=== PATIENT | female | born 1965 | race Caucasian/White ===

== ENCOUNTER → 2017-08-15 08:33 | Outpatient (CLI) | payer OTHER, BC, SELFPAY ==
[2017-08-15 09:01] LABS: Basophils % 0.4 % (0.1-2.0); Eosinophils # 0.2 K/mm3 (0.0-0.4); Eosinophils % 1.9 % (0.1-12.0); Hemoglobin 14.6 g/dL (12.2-16.2); Lymphocytes % 22.2 K/mm3 (10-50); Mean Corpuscular HGB Conc 33.9 g/dL (31.8-35.4); Mean Corpuscular Hemoglobin 29.5 pg (27.0-31.2); Mean Corpuscular Volume 86.9 fl (81-99); Mean Platelet Volume 7.7 fl (7.4-10.4); Monocytes # 0.6 K/mm3 (0.1-1.0); Monocytes % 6.4 % (1.7-9.3); Neutrophils # 6.1 K/mm3 (1.8-7.8); Neutrophils % 69.1 % (37.0-80.0); Platelet Count 263 K/mm3 (142-424); Red Blood Count 4.94 M/mm3 (4.20-5.40); Red Cell Distribution Width 13.7 % (11.5-17.5); White Blood Count 8.8 K/mm3 (4.8-10.8)
[2017-08-15 09:28] LABS: Alanine Aminotransferase 30 U/L (12-78); Albumin/Globulin Ratio 1.3 (1.1-1.8); Alkaline Phosphatase 125 U/L (46-116); Anion Gap 12.6 mEq/L (5-15); Aspartate Amino Transferase 21 U/L (15-37); Bilirubin,Total 0.6 mg/dL (0.2-1.0); Blood Urea Nitrogen 12 mg/dL (7-18); Calcium 9.1 mg/dL (8.5-10.1); Carbon Dioxide 28 mmol/L (21.0-32.0); Chloride 106 mmol/L (98-107); Chol/HDL Ratio 2.9 (1-3.5); Cholesterol 149 mg/dL (140-200); Creatinine,Serum 0.79 mg/dL (0.55-1.02); Estimated Glomerular Filt Rate 77 ml/min (>60); GFR (African American) 93 ML/MIN (>60); Globulin 3.2 gm/dl (1.3-3.2); Glucose 123 mg/dL (74-106); HDL Cholesterol 51 mg/dL (29-89); LDL Cholesterol 86 mg/dL (0-130); Potassium 3.6 mmoL/L (3.5-5.1); Sodium 143 mmol/L (136-145); Total Protein,Serum 7.2 gm/dL (6.4-8.2); Triglycerides 62 mg/dL (30-200); VLDL Cholesterol 12 mg/dL (0-40)
[2017-08-15 09:57] LABS: Erythrocyte Sedimentation Rate 13 mm/hr (0-20)
== END ==
PROVIDERS: Visit Provider Internal Medicine Adolescent Medicine
DX: Z00.00 Encounter for general adult medical examination without abnormal findings (principal); M35.00 Sjogren syndrome, unspecified; E55.9 Vitamin D deficiency, unspecified
CPT/HCPCS: 36415; 80053; 80061; 82652; 85025; 85651

== ENCOUNTER → 2018-01-25 12:47 | Outpatient (POV) | payer OTHER, BC, SELFPAY | PROVIDERS: Family Provider Internal Medicine Adolescent Medicine; PCP Internal Medicine Adolescent Medicine; Visit Provider Nurse Practitioner Acute Care | DX: Z00.00 Encounter for general adult medical examination without abnormal findings (principal) ==

== ENCOUNTER → 2018-05-14 07:07 | Outpatient (CLI) | payer BC, SELFPAY ==
[2018-05-14 09:20] LABS: Hemoglobin A1C 6.9 % (0.0-7.0)
[2018-05-14 09:40] LABS: Alanine Aminotransferase 42 U/L (12-78); Albumin Level 3.6 gm/dL (3.4-5.0); Albumin/Globulin Ratio 1.2 (1.1-1.8); Alkaline Phosphatase 102 U/L (46-116); Anion Gap 12.9 mEq/L (5-15); Aspartate Amino Transferase 22 U/L (15-37); Bilirubin,Total 0.5 mg/dL (0.2-1.0); Blood Urea Nitrogen 14 mg/dL (7-18); C-Reactive Protein 1.2 mg/L (0.0-0.9); Calcium 9.1 mg/dL (8.5-10.1); Carbon Dioxide 28 mmol/L (21.0-32.0); Chloride 105 mmol/L (98-107); Chol/HDL Ratio 2.9 (1-3.5); Cholesterol 126 mg/dL (140-200); Creatinine,Serum 0.85 mg/dL (0.55-1.02); Estimated Glomerular Filt Rate 71 ml/min (>60); GFR (African American) 85 ML/MIN (>60); Globulin 3.1 gm/dl (1.3-3.2); Glucose 174 mg/dL (74-106); HDL Cholesterol 44 mg/dL (29-89); LDL Cholesterol 70 mg/dL (0-130); Potassium 3.9 mmoL/L (3.5-5.1); Sodium 142 mmol/L (136-145); Total Protein,Serum 6.7 gm/dL (6.4-8.2); Triglycerides 62 mg/dL (30-200); VLDL Cholesterol 12 mg/dL (0-40)
[2018-05-14 09:59] LABS: Basophils % 0.5 % (0.1-2.0); Eosinophils # 0.2 K/mm3 (0.0-0.4); Eosinophils % 2.9 % (0.1-12.0); Hematocrit 38.6 % (37.0-47.0); Hemoglobin 12.7 g/dL (12.2-16.2); Lymphocytes # 1.4 K/mm3 (0.7-4.5); Mean Corpuscular HGB Conc 32.9 g/dL (31.8-35.4); Mean Corpuscular Hemoglobin 27.9 pg (27.0-31.2); Mean Corpuscular Volume 84.8 fl (81-99); Mean Platelet Volume 7.5 fl (7.4-10.4); Monocytes # 0.4 K/mm3 (0.1-1.0); Neutrophils # 4.5 K/mm3 (1.8-7.8); Neutrophils % 68.6 % (37.0-80.0); Platelet Count 184 K/mm3 (142-424); Red Blood Count 4.55 M/mm3 (4.20-5.40); Red Cell Distribution Width 15.1 % (11.5-17.5); White Blood Count 6.5 K/mm3 (4.8-10.8)
[2018-05-14 11:26] LABS: Erythrocyte Sedimentation Rate 13 mm/hr (0-30)
== END ==
PROVIDERS: Visit Provider Internal Medicine Adolescent Medicine
DX: M35.00 Sjogren syndrome, unspecified (principal); M15.0 Primary generalized (osteo)arthritis; R73.9 Hyperglycemia, unspecified
CPT/HCPCS: 36415; 80053; 80061; 83036; 85025; 85651; 86140

== ENCOUNTER → 2019-11-01 08:52 | Outpatient (CLI) | payer BC, SELFPAY ==
[2019-11-02 13:16] LABS: Covid-19 Nasal PCR Sendout Lex Not Detected
== END ==
PROVIDERS: Visit Provider Internal Medicine Adolescent Medicine
DX: Z20.828 Contact with and (suspected) exposure to other viral communicable diseases (principal)
CPT/HCPCS: U0004

== ENCOUNTER 2020-12-09 13:19 | Emergency (ER) | payer BC, SELFPAY ==
[2020-12-09 14:20] VITALS: BP 145/75; PULSE 89; RESP 16; TEMP 36.7; O2SAT 99; BMI 33.3
--- NOTE | 2020-12-09 14:55 | HMH.EDUTC ---
[facility] Disposition Clinical Impression: Upper respiratory infection, viral, COVID-19 virus test result unknown Disposition: Home, Self-Care Condition on Discharge: Good Instructions: DI for Viral Upper Respiratory Infection -- Adult, DI for COVID-19 (Suspected or Confirmed ), Preventing the Spread of Coronavirus Discharge Instructions Additional Instructions: covid swab was sent to lab, call later today for results. self isolate until test results are known to be negative No sign of a bacterial infection. Likely viral. Viruses can take 7-14 days to run their course. Nasal saline and bulb syringe or nose Anaid to remove nasal drainage to help with nasal congestion. Hard to eat, drink, sleep with nasal congestion so important to keep this cleaned out. Monitor temp. Tylenol or Motrin as needed for pain or fever Encourage fluids, water, Gatorade, Powerade, Pedialyte if infant/toddler/child Warm salt water gargles Warm fluids Sore throat lozenges Sleep elevated Humidifier/vaporizer Follow-up immediately for new or worsening symptoms or no noticeable improvement over the next 48-72 hours. Referrals: Tomy Reid MD [Primary Care Provider] - Forms: Work/School Release Time of Disposition: 14:59 Medical Decision Making - Jc Inquiry Pt receiving controlled substance: No Vital Signs: 12/09/20 14:20 Temperature 98.1 F Temperature Source Oral Pulse Rate [Right Brachial] 89 Respiratory Rate 16 Blood Pressure [Right Arm] 145/75 H Blood Pressure Mean [Right Arm] 98 Blood Pressure Source [Right Arm] Automatic Cuff Blood Pressure Position [Right Arm] Sitting 02 Sat by Pulse Oximetry 99 Oxygen Delivery Method Room Air Orders (Tests/Meds): ORDERS Category Date Time Status Covid-19 Nasal PCR ([facility]) Routine Lab 12/09/20 14:37 Ordered [facility] HPI - General Chief complaint: Urgent Treatment Center Stated complaint: covid test Time Seen by Provider: 12/09/20 14:55 Mode of Arrival: Ambulatory Source of Information: Patient Limitations: No Limitations Description of Symptoms (Recalled from Triage Doc. by RN): COVID TEST. C/O COUGH, HEADACHE, DIARRHEA, NAUSEA, AND CHEST CONGESTION X 2 DAYS HEENT Symptoms (Recalled from RN notes): Yes Resp Symptoms (Recalled from RN notes): Yes Skin Symptoms (Recalled from RN notes): No MS Symptoms (Recalled from RN notes): No Functional Status (Recalled from RN notes): WNL - History of Present Illness Provider Complaint: 55 yr old female presents for covid test. pt c/o cough,headache,diarrhea,fever,nausea and chest congestion for 2 days. - Related Data Home Medications Medication Instructions Recorded Confirmed escitalopram oxalate 10 mg tablet 10 mg PO DAILY tab 06/25/17 10/31/18 glimepiride 2 mg tablet 2 mg PO DAILY tab 08/25/19 pioglitazone 30 mg tablet 30 mg PO DAILY tab 08/25/19 Allergies Allergy/AdvReac Type Severity Reaction Status Date / Time Sulfa (Sulfonamide Allergy Unknown I-HIVES Verified 10/08/20 16:00 Antibiotics) [SULFA (SULFONAMIDE ANTIBIOTICS)] - Worker's Comp Is this a Worker's Comp case?: No [facility] History - Hepatitis A Screen Drug use history?: No High risk sexual behaviors?: No History of sexually transmitted infection?: No Currently employed?: No Childcare worker?: No Do you have indoor plumbing?: Yes Do you have electricity?: Yes Attestation statement:: This patient has been screened for Hepatitis A risk factors. I have reviewed the patient's past medical history: Yes Medical History: Reports:: Diabetes Mellitus Type 2, Hypertension Other Medical History: Reports: Arthritis, Other Comment: Endometriosis. Breast mass. Diabetes Type 2. Arthritis. Hypertension. IBS Laterality Cases: Bilateral: Tonsillectomy Other Surgeries: Yes: Appendectomy, Other Amputation: No Fractures: No Comment: as a child- Tonsillectomy Fascial sling procedure for stress incon. as a child- open Appy. 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
[2020-12-09 14:58] VITALS: BP 145/75; PULSE 89; RESP 16; TEMP 36.7; O2SAT 99
== END 2020-12-09 15:06 | disposition home or self-care (01) ==
PROVIDERS: Emergency Provider Nurse Practitioner Family; PCP Internal Medicine Adolescent Medicine
DX: J06.9 Acute upper respiratory infection, unspecified (principal)
CPT/HCPCS: 99202; G0463; U0003

== ENCOUNTER → 2021-07-24 16:17 | Outpatient (CLI) | payer BC, SELFPAY | PROVIDERS: PCP Internal Medicine Adolescent Medicine; Visit Provider Surgery | DX: Z11.52 Encounter for screening for COVID-19 (principal) | CPT/HCPCS: C9803; U0003; U0005 ==

== ENCOUNTER 2021-07-26 06:25 | Day surgery (SDC) | payer BC, SELFPAY ==
[2021-07-24 12:52] VITALS: BMI 27.4
[2021-07-26 07:03] VITALS: BP 126/79; PULSE 76; RESP 18; TEMP 37; O2SAT 94
[2021-07-26 07:24] VITALS: O2SAT 97
--- NOTE | 2021-07-26 07:37 | HMH.ANESCL ---
[facility] Anesthesia Checklist - Patient Identification Patient Identification: Arm Band - Structural Data Admitted From: Home Planned Operative Procedure/s: colonoscopy Consent for Planned Operative Procedure(s) Verified: Yes Verified Documents: Surgical Consent, History and Physical - NPO Status Verified Time NPO: 00:00 - Additional verifications Anesthesia Reactions: No - Airway Assessment C-Spine Mobility Assessed: Yes (mp2) TMJ Mobility Assessed: Yes Dentition: Good Dentition - Neurological Assessment Level of Consciousness: Awake, Alert - Anesthesia Plan Anesthesia Risk discussed: Yes Anesthesia Plan: Verified ASA Class: II Anesthesia Type: MAC [facility] History I have reviewed the patient's past medical history: Yes Medical History: Reports:: Diabetes Mellitus Type 2, Hypertension Denies:: Cancer, Diabetes Mellitus Type 1, Internal Pacemaker, MRSA, Seizures *Have you ever received a pneumonia vaccine?: No *Have you received a flu vaccine this season?: No Other Medical History: Reports: Arthritis, Other Anesthesia experience/problems:: nac Laterality Cases: Bilateral: Tonsillectomy Other Surgeries: Yes: Appendectomy, Other. No: Pacemaker Amputation: No Fractures: No - *Social History Last grade of school completed: Some college Smoking Status: Never smoker Alcohol Intake: never Alcohol Intake Frequency:: other Substance Use Type: denies use *Occupational Status:: employed Housing: house Household Members: family *Travel in the last 8 weeks: None Family Hx:: Coronary Artery Disease, Diabetes, Hypertension
[2021-07-26 07:55] VITALS: BP 138/77; PULSE 65; RESP 16; TEMP 36.2; O2SAT 99
--- NOTE | 2021-07-26 07:55 | P.PCN_ITS ---
- Procedure: Date: 07/26/21 Patient Date of :: 1965 Procedure Performed:: Total colonoscopy to terminal ileum with biopsies Indications:: Patient is a 56-year-old female. She presents for screening colonoscopy. She had previously undergone hysterectomy. She has had some symptoms attributed to IBS characterized as left lower quadrant left pelvic pain. She also has alteration between diarrhea and constipation. She has had previous colonoscopy in [address] Patel which revealed diverticulosis, mild. Dr. Godfrey Jiménez did colonoscopy on 05/15/2008 which revealed sigmoid diverticulosis. Dr. Carpenter did colonoscopy on 06/21/2015 which was normal with no diverticulosis and 5 to 6- year follow-up was recommended. Performing Provider:: Aureliano Hagen MD Referring Provider:: Tomy Reid MD Sedation:: MAC sedation Procedure:: Patient was taken to endoscopy procedure room. She was positioned in lateral decubitus position. Adequate intravenous sedation was achieved with anesthesia titration of propofol. Variable stiffness Olympus colonoscope was inserted via the anus. Is advanced to the cecum with some minor difficulty as she had some tortuosity and redundancy of the rectosigmoid. Colonic preparation was good. Ileocecal valve and appendiceal orifice were clearly identified. There was some minor subtle irregularity at the appendiceal orifice which was biopsied. Colonoscope was advanced into the terminal ileum which appeared grossly normal. Cold biopsy was obtained. Colonoscope was slowly withdrawn through the colon with careful surveillance. She had some mild sigmoid diverticulosis. Several random left colon biopsies were obtained as there was some possible subtle colitis. Retroflexion within the rectum revealed nonbleeding mildly prolapsing hemorrhoids. Colonoscope was withdrawn. Findings:: Mild sigmoid diverticulosis Redundancy of sigmoid colon and tortuosity of rectosigmoid Potential very mild colitis of the distal sigmoid, biopsied Prolapsing nonbleeding internal hemorrhoids Recommendations:: No polyps noted. Repeat colonoscopy pending symptoms, likely 10 years for screening purposes. Some of her symptoms of irritable bowel syndrome may be secondary to her colon pathology post hysterectomy with redundancy and tortuosity of the sigmoid and rectosigmoid colon. Complications:: None immediately apparent Estimated blood obtained (mL): 3
[2021-07-26 08:05] VITALS: BP 141/77; PULSE 71; RESP 18; O2SAT 99
[2021-07-26 08:15] VITALS: BP 135/73; PULSE 84; RESP 18; O2SAT 99
[2021-07-26 08:28] VITALS: BP 161/97; PULSE 63; RESP 18; TEMP 36.2; O2SAT 99
[2022-01-16 10:59] LABS: POC Glucose,Bedside 94 (70-110)
== END 2021-07-26 08:28 | disposition home or self-care (01) ==
LOC: OUTP 06:26
PROVIDERS: PCP Internal Medicine Adolescent Medicine; Visit Provider Surgery
PROC: 0DJD8ZZ Inspection of Lower Intestinal Tract, Via Natural or Artificial Opening Endoscopic (ICD-10-PCS; CPT 45380; principal; 2021-07-26 07:30)
DX: Z12.11 Encounter for screening for malignant neoplasm of colon (principal); K57.30 Diverticulosis of large intestine without perforation or abscess without bleeding; K56.2 Volvulus; K52.9 Noninfective gastroenteritis and colitis, unspecified; K64.9 Unspecified hemorrhoids; E11.9 Type 2 diabetes mellitus without complications; I10 Essential (primary) hypertension; M19.90 Unspecified osteoarthritis, unspecified site; Z88.2 Allergy status to sulfonamides; Z79.899 Other long term (current) drug therapy
CPT/HCPCS: 45380; 82962

== ENCOUNTER → 2022-09-26 10:05 | Outpatient (CLI) | payer BC, OTHER, SELFPAY ==
[2022-09-26 10:46] LABS: Basophils % 0.5 % (0.1-2.0); Eosinophils # 0.1 K/mm3 (0.0-0.4); Eosinophils % 1.8 % (0.1-12.0); Hematocrit 37.9 % (37.0-47.0); Hemoglobin 12.6 g/dL (12.2-16.2); Lymphocytes # 1.5 K/mm3 (0.7-4.5); Lymphocytes % 23.5 % (10-50); Mean Corpuscular HGB Conc 33.3 g/dL (31.8-35.4); Mean Corpuscular Hemoglobin 29.8 pg (27.0-31.2); Mean Corpuscular Volume 89.4 fl (81-99); Mean Platelet Volume 8.2 fl (7.4-10.4); Monocytes # 0.4 K/mm3 (0.1-1.0); Monocytes % 5.6 % (1.7-9.3); Neutrophils # 4.4 K/mm3 (1.8-7.8); Neutrophils % 68.7 % (37.0-80.0); Platelet Count 209 K/mm3 (142-424); Red Blood Count 4.24 M/mm3 (4.20-5.40); Red Cell Distribution Width 14.2 % (11.5-17.5); White Blood Count 6.3 K/mm3 (4.8-10.8)
[2022-09-26 11:03] LABS: Hemoglobin A1C 4.4 % (4.0-6.0)
[2022-09-26 11:06] LABS: Chloride 102 mmol/L (98-107); Sodium 139 mmol/L (136-145)
[2022-09-26 11:09] LABS: Alanine Aminotransferase 19 U/L (12-78); Albumin Level 4.2 g/dl (3.5-5.0); Albumin/Globulin Ratio 1.6 (1.1-1.8); Alkaline Phosphatase 71 U/L (38-126); Aspartate Amino Transferase 29 U/L (14-36); Bilirubin,Total 0.6 mg/dl (0.2-1.3); Blood Urea Nitrogen 7 mg/dl (7-17); Carbon Dioxide 29 mmol/L (22.0-30.0); Cholesterol 140 mg/dl (140-200); Estimated Glomerular Filt Rate 58 ml/min (>60); GFR (African American) 70 ML/MIN (>60); Globulin 2.6 g/dL (1.3-3.2); Total Protein,Serum 6.8 g/dl (6.3-8.2); Triglycerides 109 mg/dl (30-150); VLDL Cholesterol 22 mg/dL (0-40)
[2022-09-26 11:10] LABS: Calcium 9.7 mg/dl (8.4-10.2); Chol/HDL Ratio 2.6 (1-3.5); Glucose 83 mg/dl (74-100); HDL Cholesterol 53 mg/dl (40-60)
[2022-09-26 11:21] LABS: Direct LDL Cholesterol 55.08 mg/dL (100-129)
[2022-09-26 11:27] LABS: 25-OH Vitamin D, Total 38.7 ng/mL (30-100)
[2022-09-26 11:41] LABS: Thyroid Stimulating Hormone 1.04 uIU/mL (0.465-4.68)
[2022-09-26 11:45] LABS: Ferritin 73.1 ng/ml (11.1-264)
[2022-09-26 12:42] LABS: Vitamin B12 821 pg/mL (239-931)
== END ==
PROVIDERS: PCP Internal Medicine Adolescent Medicine; Visit Provider Nurse Practitioner Family
DX: E11.9 Type 2 diabetes mellitus without complications (principal); I10 Essential (primary) hypertension; R53.81 Other malaise; Z86.39 Personal history of other endocrine, nutritional and metabolic disease; Z79.84 Long term (current) use of oral hypoglycemic drugs
CPT/HCPCS: 36415; 80053; 80061; 82306; 82607; 82728; 83036; 84443; 85025

== ENCOUNTER 2024-01-29 15:29 | Outpatient (CLI) | payer BC, OTHER, SELFPAY ==
--- NOTE | 2024-01-29 15:48 | XR_ITS ---
FINAL REPORT CLINICAL HISTORY: BREATHLESSNESS CHEST PAIN cough, shortness of breath x 3 months COMPARISON: None FINDINGS: Two views of the chest were obtained. The heart size and pulmonary vascularity are within normal limits. The mediastinum is normal. No acute pulmonary abnormality is identified. There is no pneumothorax. The bony thorax is intact. IMPRESSION: No active cardiopulmonary disease. Reviewed, Interpreted and Dictated by Aureliano De La Cruz III, MD Transcribed by Lydia Ansari Authenticated and . [facility]
[2024-01-29 16:34] LABS: Basophils # 0.1 K/mm3 (0-0.2); Basophils % 0.7 % (0.1-2.0); Eosinophils # 0.2 K/mm3 (0.0-0.4); Eosinophils % 2.7 % (0.1-12.0); Hematocrit 37.5 % (37.0-47.0); Lymphocytes # 2.2 K/mm3 (0.7-4.5); Lymphocytes % 26.6 % (10-50); Mean Corpuscular HGB Conc 34.6 g/dL (31.8-35.4); Mean Corpuscular Hemoglobin 30.4 pg (27.0-31.2); Mean Corpuscular Volume 87.8 fl (81-99); Mean Platelet Volume 8.1 fl (7.4-10.4); Monocytes # 0.6 K/mm3 (0.1-1.0); Monocytes % 6.7 % (1.7-9.3); Neutrophils # 5.2 K/mm3 (1.8-7.8); Neutrophils % 63.2 % (37.0-80.0); Platelet Count 214 K/mm3 (142-424); Red Blood Count 4.28 M/mm3 (4.20-5.40); Red Cell Distribution Width 13.8 % (11.5-17.5); White Blood Count 8.2 K/mm3 (4.8-10.8)
[2024-01-29 16:54] LABS: Albumin Level 4.3 g/dl (3.5-5.0); Chloride 103 mmol/L (98-107); Potassium 4.1 mmoL/L (3.5-5.1); Sodium 136 mmol/L (136-145)
[2024-01-29 16:57] LABS: Alanine Aminotransferase 10 U/L (12-78); Albumin/Globulin Ratio 1.8 (1.1-1.8); Alkaline Phosphatase 64 U/L (38-126); Anion Gap 12.1 mEq/L (5-15); Aspartate Amino Transferase 29 U/L (14-36); Bilirubin,Total 0.7 mg/dl (0.2-1.3); Blood Urea Nitrogen 10 mg/dl (7-17); Calcium 9.4 mg/dl (8.4-10.2); Carbon Dioxide 25 mmol/L (22.0-30.0); Estimated Glomerular Filt Rate 74 ml/min (>60); GFR (African American) 90 ML/MIN (>60); Globulin 2.4 g/dL (1.3-3.2); Glucose 84 mg/dl (74-100); Magnesium 1.9 mg/dl (1.6-2.3); Total Protein,Serum 6.7 g/dl (6.3-8.2)
[2024-01-29 16:58] LABS: Hemoglobin A1C 4.9 % (4.0-6.0)
[2024-01-29 17:28] LABS: Thyroid Stimulating Hormone 1.01 uIU/mL (0.465-4.68)
[2024-01-29 17:39] LABS: 25-OH Vitamin D, Total 84.5 ng/mL (30-100)
[2024-01-29 18:23] LABS: Vitamin B12 > 1000 pg/mL (239-931)
== END 2024-01-29 23:59 | disposition home or self-care (01) ==
LOC: RAD 15:31
PROVIDERS: PCP Internal Medicine Adolescent Medicine; Visit Provider Internal Medicine Adolescent Medicine
DX: R06.81 Apnea, not elsewhere classified (principal); R07.9 Chest pain, unspecified; K21.9 Gastro-esophageal reflux disease without esophagitis; E55.9 Vitamin D deficiency, unspecified; E11.9 Type 2 diabetes mellitus without complications
CPT/HCPCS: 36415; 71046; 80050; 80053; 82306; 82607; 83036; 83735; 84443; 85025

== ENCOUNTER 2024-02-11 09:40 | Outpatient (CLI) | payer BC, OTHER, SELFPAY ==
[2024-02-11 10:15] VITALS: PULSE 68; PULSE 74
[2024-02-11] MEDS: ALBUTEROL 0.083% 2.5 MG/3 ML NEB IH (10:15)
== END 2024-02-11 23:59 | disposition home or self-care (01) ==
LOC: RT 09:41
PROVIDERS: PCP Internal Medicine Adolescent Medicine; Visit Provider Internal Medicine Adolescent Medicine
DX: R07.9 Chest pain, unspecified (principal); R06.81 Apnea, not elsewhere classified
CPT/HCPCS: 94060; 94640; 94726; 94729; J7613

== ENCOUNTER 2024-11-08 08:14 | Outpatient (CLI) | payer BC, OTHER, SELFPAY ==
--- OUTSIDE RECORDS SUMMARY | 2024-07-23 17:30 | XMS_ITS ---
Author Organization [facility] PE D KAYLIE Address [address] [place] [address] Care Team Providers Care Non Acoustic Operator Name Role Phone FranklinTomy Primary Care Provider [...] ankles Drug Allergy Active REASON FOR VISIT [facility] To [facility] Conversion Encounter Medications Medication SIG (Take, Route, Frequency, Duration) Notes Start Date End Date Status Nystatin 125384 UNIT/ML 5 mL orally swish 4 times [...] review and pick correct strength-formulati on from [employer] options. If intended option is not shown, discontinue and re-order from Quick Search* 06/29/2024 Active BUDESONIDE-FORMOTER OL FUMARATE DIHYDRATE 160 MCG-4.5 MCG/INH 2 INH INHALED 2 TIMES A DAY; Duration: 30 DAYS Please dispense spacer for MDI also... thank you! *Please review for potential replacement for e-prescription and drug interaction check* 02/22/2024 Active Encounters Encounter Location Date Provider Diagnosis [facility] [place] [address] [facility] [address] [place] [address] 07/23/2024 Provider Migration Mild intermittent asthma without [...] Sig Start Date Stop Date Notes Nystatin 029795 UNIT/ML 5 mL orally swis h 4 times a day; Duration: 14 days 07/01/2024 Fluconazole 150 MG 1 tab(s) orally once; Duration: 10 days 06/29/2024 Fluticasone Propionate 50 MCG/ACT 2 spray(s) in each nostril once a day; Duration: 90 days 06/29/2024 Breyna 160 MCG-4.5 MCG/INH 2 INH INHALED 2 TIMES A DAY; Duration: 90 DAYS 06/29/2024 *Please review and pick correct strength-formulation from [employer] options. If intended option is not shown, discontinue and re-order from Quick Search* Progress Notes * Zaynab HOLLOWAYDOB: [birth year] (59 yo F)Acc No.[id number]:07/23/2024 Patient: Zaynab HENDRIX Provider: Joe Bethea :1965 A ge:59 Y S ex:Female Date:07/23/2024 Address:[address] [place], [place] [address], [id number] Pcp:Tomy Reid Subjective: * Chief Complaints: * [...] 1. 4. O thers Start Nystatin Suspension, 204857 UNIT/ML, 5 mL, orally, swish 4 times a day, 14 days, 280, Refills 0. * * Electronic signature of Prov ider Migration on 11/08/2024 at 08:20 AM EDT Sign off status: Pending * Provider: Joe crespo Migration Date: 0 07/23/2024 Generated for Nelida quinonez/Jaki/Denitting on: 0 11/08/2024 08:20 AM EDT
--- OUTSIDE RECORDS SUMMARY | 2024-11-07 10:00 | XMS_ITS ---
Author Organization [facility] PE D KAYLIE Address [address] [place] [address] Care Team Providers Care Plaster Die Maker Name Role Phone Tomy Reid Primary Care Provider [phone] Allergies Allergen (clinical drug ingredient) Drug/Non Drug Allergy documented on EMR Reaction Allergy Type Onset Date Status SULFA (uncoded) rash Allergy Acti ve bisoprolol Bisoprolol Fumarate swelling in ankles Drug Allergy Active bisoprolol / hydrochlorothiazide Bisoprolol-hydro CHLOROthiazide swelling in ankles Drug Allergy Active amlodipine amLODIPine swelling in ankles Drug Allergy Active REASON FOR VISIT Follow up on asthma. Medications Medication SIG (Take, Route, Frequency, Duration) Notes Start Date End Date Status Ozempic (0.25 or 0.5 MG/DOSE) 2 MG/3ML INJECT 0.5 MG SUBCUTANEOUSLY ONCE A WEEK; Duration: 84 Active Olmesartan Medoxomil 40 MG 1 tab(s) orally once a day; Duration: 90 days Active Escitalopram Oxalate 20 MG TAKE 1 TABLET DAILY; Duration: 90 Active Fluticasone Propionate 50 MCG/ACT 2 spray(s) in each nostril once a day; Duration: 90 days 06/29/2024 Active Fluconazole 150 MG 1 tab(s) orally once ; Duration: 10 days 06/29/2024 Active Metoprolol Tartrate 25 MG 1 tab(s) orally 2 times a day Active Famotidine 40 MG 1 tab(s) orally once a day (at bedtime); Duration: 90 days Active Nystatin 055385 UNIT/ML 5 mL orally swish 4 times a day; Duration: 14 days 07/01/2024 Active Breyna 160 MCG-4.5 MCG/INH 2 INH INHALED 2 TIMES A DAY; Duration: 90 DAYS *Please review and pick correct strength-formulati on from [employer] options. If intended option is not shown, discontinue and re-order from Quick Search* 06/29/2024 Active BUDESONIDE-FORMOTER OL FUMARATE DIHYDRATE 160 MCG-4.5 MCG/INH 2 INH INHALED 2 TIMES A DAY; Duration: 30 DAYS Please dispense spacer for MDI also... thank you! *Please review for potential replacement for e-prescription and drug interaction check* 02/22/2024 Active Vital Signs Temperature 97.7 degrees Fahrenheit 11/08/19 25 Blood pressure systolic 114 mm Hg 11/08/19 25 Blood pressure diastolic 84 mm Hg 025 Heart Rate 72 /min 11/07/2024 Height 5 ft 6 in in 11/07/2024 Weight 150 lbs 11/07/2024 BMI 24.21 kg/m2 11/07/2024 Encounters Encounter Location Date Provider Diagnosis [facility] [address] [place] [address] 11/07/2024 Tomy Franklin Hypertension, essent ial I10 ; Type 2 diabetes mellitus without complication, without long-term current use of insulin E11.9 ; History of vitamin D deficiency Z86.39 ; Mild intermittent asthma without complication J45.20 ; Acute nonintractable headache, unspecified headache type R51.9 and Diplopia H53.2 Assessments Encounter Date Diagnosis (ICD Code) Assessment Notes Treatment Notes Treatment Clinical Notes Section Notes 11/07/2024 Hypertension, essential (ICD-10 - I10) Her hypertension is well managed by Olmesartan Medoxomil and metoprolol. In office her BP was 114/84. 11/07/2024 Type 2 diabetes mellitus without complication, without long-term current use of insulin (ICD-10 - E11.9) Her T2D is well managed with Ozempic. No acute concerns at this time. 11/07/2024 History of vitamin D deficiency (ICD-10 - Z86.39) No concerns at this time. 11/07/2024 Mild intermittent asthma without complication (ICD-10 - J45.20) Her asthma is well managed with Breyna. No concerns at this time. 11/07/2024 Acute nonintractable headache, unspecified headache type (ICD-10 - R51.9) We discussed getting an MRI of her head to assess the cause of the headaches. We also discussed getting an ESR and cortisol levels on her tomorrow morning. 11/07/2024 Diplopia (ICD-10 - H53.2) We discussed getting an MRI of her head to assess the cause of the diplopia. Plan Of Treatment Treatment Notes Assessment Notes Hypertension, essential Her hypertension is well managed by Olmesartan Medoxomil and metoprolol. In office her BP was 114/84. Type 2 diabetes mellitus wit hout complication, without long-term current use of insulin Her T2D is well managed with Ozempic. No acute concerns at this time. History of vitamin D deficiency No justine rns at this time. Mild intermittent asthma wit hout complication Her asthma is well managed with Breyna. No concerns at this time. Acute nonintractable headach e, unspecified headache type We discussed getting an MRI of her head to assess the cause of the headaches. We also discussed getting an ESR and cortisol levels on her tomorrow morning. Diplopia We discussed getting an MRI of her head to assess the cause of the diplopia. Pending Test Test Name Order Date MRI : Head, Without Contrast 11/07/2024 THYROID PANEL WITH TSH (7444) 11/07/2024 LIPID PANEL, STANDARD (7600) 11/07/2024 COMPREHENSIVE METABOLIC PANEL (31266) CBC (INCLUDES DIFF/PLT) (6399) HEMOGLOBIN A1c (496) 11/07/2024 VITAMIN B12/FOLATE, SERUM PANEL (7065) 0 11/07/2024 CORTISOL, A.M. (4212) 11/07/2024 VITAMIN D,25-OH,TOTAL,IA (96538) 025 Next Appt Details Follow Up: prn, Reason: Provider Name:Tomy Reid, 11/08/2024 08:30:00 AM, [address], [place], [address], Progress Notes * Zaynab HOLLOWAY: 7 (59 yo F)Acc No.[id number]:11/07/2024 Progress Notes Patient: Zaynab HENDRIX Provider: Radha Reid MD :1965 A ge:59 Y S ex:Female Date:11/07/2024 Address:[address] [place] [address], [place], [id number] Subjective: * Chief Complaints: * 1 . Follow up on asthma.. * HPI: g en: Mrs. Holloway presents for a f/u: On June she was started on Breyna to help with her asthma. She reports that she has noticed improvement in her breathing and is becoming less short of breath. Her main concern is these h/a she has been experiencing for the past month. She notes the pain begins o n the top of her left head and radiates down to her left face near her left maxillary sinus. She also notes having blurry vision in the right eye. She has these headaches once to twice a week. Excedrin, lavendar/peppermint oils, and cold compresses do help with the migraines. She is also having concerns about her sleep. For the past several months, she has had trouble falling asleep. CBD and melatonin does help, but she does not want to take this every night if she does not have to. She denies daytime sleepiness or taking naps. * Medical History: H ormone replacement therapy, Hypertension, Anxiety, Mild osteopenia on DEXA 08/06, Fibromyalgia, Sjogrens syndrome, Diabetes, Colonoscopy. * Surgical History: t onsillectomy , hysterectomy 2001, cholecystectomy 1999, appendectomy , nasal septoplasty 2013, fascial sling for urethra 2017. * Hospitalization/Major Diagno stic Procedure: D enies Past Hospitalization. * Family History: F ather: alive, diabetes, throat cancer, diagnosed with Diabetes. M other: , coronary artery disease, hypertension, diagnosed with Heart Disease. P aternal Grand Father: . P aternal Grand Mother: , [place]. M aternal Grand Father: . M aternal Grand Mother: . P aternal uncle: alive, COPD. P aternal aunt: . M aternal uncle: alive. M aternal aunt: alive, 1 maternal aunt [place], 1 maternal aunt breast cancer,aneurysm. S iblings: alive, diabetes, type II sister. Renee benson: alive. 1 sister(s) - healthy. 2 daughter(s) - healthy. . * Social History: S moking: no A re you a:: nonsmoker. R ecreational drug use: no. Exercise: no. Home smoke detector use: yes. Caffeine: yes, frequency: 2 cups coffee in am. Living Will: Yes. Alcohol: no. Sexually active: yes. Travel outside [place]: no. Occupation: retired. * Medications: T aking Metoprolol Tartrate 25 MG Tablet 1 tab(s) orally 2 times a day , Taking Famotidine 40 MG Tablet 1 tab(s) orally once a day (at bedtime) , Taking BUDESONIDE-FORMOTEROL FUMARATE DIHYDRATE 160 MCG-4.5 MCG/INH AEROSOL 2 INH INHALED 2 TIMES A DAY , Notes to Pharmacist: Please dispense spacer for MDI also... thank you! *Please review for potential replacement for e-prescription and drug interaction check*, Taking Nystatin 363384 UNIT/ML Suspension 5 mL orally swish 4 times a day , Taking Breyna 160 MCG-4.5 MCG/INH AEROSOL 2 INH INHALED 2 TIMES A DAY , Notes to Pharmacist: *Please review and pick correct strength-formulation from [employer] options. If intended option is not shown, discontinue and re-order from Quick Search*, Taking Fluticasone Propionate 50 MCG/ACT Suspension 2 spray(s) in each nostril once a day , Taking Fluconazole 150 MG Tablet 1 tab(s) orally once , Taking Olmesartan Medoxomil 40 MG Tablet 1 tab(s) orally once a day , Taking Escitalopram Oxalate 20 MG Tablet TAKE 1 TABLET DAILY , Taking Ozempic (0.25 or 0.5 MG/DOSE) 2 MG/3ML Solution Pen-injector INJECT 0.5 MG SUBCUTANEOUSLY ONCE A WEEK , Medication List reviewed and reconciled with the patient * Allergies: S ULFA: rash, amLODIPine: swelling in ankles, Bisoprolol-hydroCHLOROthiazide: swelling in ankles, Bisoprolol Fumarate: swelling in ankles. Objective: * Vitals: N urse: be, Pain: 3, Temp: 97.7, RR: 16, HR: 72, BP: 114/84, Ht: 5 ft 6 in, Wt: 150, BMI:24.21. * Examination: G eneral Examination: General P leasant and Cooperative, NAD on RA,. Chest: n ormal shape and expansion. Heart: R egular Rate and Rhythm, no murmur, rubs or gallops. Lungs: L CTAB, No wheezes, crackles or rhonchi, Good air movement,. Peripheral pulses: n ormal (2+) bilaterally. ? Assessment: * Assessment: 1. H ypertension, essential - I10 (Primary) 2 . T ype 2 diabetes mellitus without complication, without long-term current use of insulin - E11.9 3 . H istory of vitamin D deficiency - Z86.39 4 . M ild intermittent asthma without complication - J45.20 5 . A cute nonintractable headache, unspecified headache type - R51.9 6 . D iplopia - H53.2 Plan: * Treatment: 2. T ype 2 diabetes mellitus without complication, without long-term current use of insulin L AB: THYROID PANEL WITH TSH (7444) L AB: LIPID PANEL, STANDARD (7600) L AB: COMPREHENSIVE METABOLIC PANEL (86412) L AB: CBC (INCLUDES DIFF/PLT) (6399) L AB: HEMOGLOBIN A1c (496) L AB: VITAMIN B12/FOLATE, SERUM PANEL (7065) L AB: CORTISOL, A.M. (4212) L AB: VITAMIN D,25-OH,TOTAL,IA (32216) Notes: Her T2D is well managed with Ozempic. No acute concerns at this time. 3. H istory of vitamin D deficiency L AB: THYROID PANEL WITH TSH (7444) L AB: LIPID PANEL, STANDARD (7600) L AB: COMPREHENSIVE METABOLIC PANEL (30691) L AB: CBC (INCLUDES DIFF/PLT) (6399) L AB: HEMOGLOBIN A1c (496) L AB: VITAMIN B12/FOLATE, SERUM PANEL (7065) L AB: CORTISOL, A.M. (4212) L AB: VITAMIN D,25-OH,TOTAL,IA (07301) Notes: No concerns at this time. 4. M ild intermittent asthma without complication Notes: Her asthma is well managed with Breyna. No concerns at this time. 5. A cute nonintractable headache, unspecified headache type L AB: THYROID PANEL WITH TSH (7444) L AB: LIPID PANEL, STANDARD (7600) L AB: COMPREHENSIVE METABOLIC PANEL (71689) L AB: CBC (INCLUDES DIFF/PLT) (6399) L AB: HEMOGLOBIN A1c (496) L AB: VITAMIN B12/FOLATE, SERUM PANEL (7065) L AB: CORTISOL, A.M. (4212) L AB: VITAMIN D,25-OH,TOTAL,IA (97017) I maging: MRI : Head, Without Contrast * Notes: We discussed getting an MRI of her head to assess the cause of the headaches. We also discussed getting an ESR and cortisol levels on her tomorrow morning.??6.?Diplopia?LAB: THYROID PANEL WITH TSH (7444) ?LAB: LIPID PANEL, STANDARD (7600) ?LAB: COMPREHENSIVE METABOLIC PANEL (72237) ?LAB: CBC (INCLUDES DIFF/PLT) (6399) ?LAB: HEMOGLOBIN A1c (496) ?LAB: VITAMIN B12/FOLATE, SERUM PANEL (7065) ?LAB: CORTISOL, A.M. (4212) ?LAB: VITAMIN D,25-OH,TOTAL,IA (61288) ?Imaging: MRI : Head, Without Contrast* Pattie Dash 11/07/2024 02: 57:57 PM EDT > Precert not required for CPT 20335 * Notes: We discussed getting an MRI of her head to assess the cause of the diplopia.?? * Follow Up: p rn * * Sign off status: Completed true * Provider: Radha Reid MD Date: 11/07/2024 Generated for Nelida quinonez/Jaki/eTmaxiitting on: 11/08/2024 08:19 AM EDT History and Physical Notes * HPI (History of Present Illness) Category Sub-Category Detail Notes Category Not es gen Mrs. Holloway presents for a f/u: On June she was started on Breyna to help with her asthma. She reports that she has noticed improvement in her breathing and is becoming less short of breath. Her main concern is these h/a she has been experiencing for the past month. She notes the pain begins on the top of her left head and radiates down to her left face near her left maxillary sinus. She also notes having blurry vision in the right eye. She has these headaches once to twice a week. Excedrin, lavendar/peppermint oils, and cold compresses do help with the migraines. She is also having concerns about her sleep. For the past several months, she has had trouble falling asleep. CBD and melatonin does help, but she does not want to take this every night if she does not have to. She denies daytime sleepiness or taking naps. Examination Category Sub-Category Detail Notes Category Not es General Examination Heart: Regular Rate and Rhythm, no murmur, rubs or gallops Lungs: LCTAB, No wheezes, c rackles or rhonchi, Good air movement, Peripheral pulses: normal (2+) bilatera lly Chest: normal shape and exp ansion General Pleasant and Coopera tive, NAD on RA,
--- OUTSIDE RECORDS SUMMARY | 2024-11-08 08:20 | XMS_ITS | Encounter Summary ---
Author Organization [facility] Address [address] [place] [address] Care Team Providers Care Fish Stringer Assembler Name Role Phone Tomy Reid MD Primary Care Provider [phone] Encounter Details Date Type Department Care Team ([facility] st Contact Info) Description 09/06/2020 Abstract [facility] [address], [address] [place] [address] Sonja Shields PA [address] [place] [address] Social History Tobacco Use Types Packs/Day Years Used Date Smoking Tobacco: Never Smokeless Tobacco: Never Comments Unknown Sex and Gender Information Value Date Recorded Sex Assigned at Female 04/16/2021 10:02 AM EST Legal Sex Female 8:32 PM EDT Gender Identity Female 04/16/2021 10:02 AM EST Sexual Orientation Straight 04/16/2021 10 :02 AM EST documented as of this encounter Plan of Treatment Not on file documented as of this encounter Visit Diagnoses Not on filedocumented in this encounter Care Teams Fish Stringer Assembler Relationship Specialty Start Date End Date Tomy Reid MD [address] [place] [address] PCP - General 08/31/20 documented as of this encounter
--- OUTSIDE RECORDS SUMMARY | 2024-11-08 08:20 | XMS_ITS | Clinical Summary ---
Author Organization [facility] Address [address] [place] [address] Care Team Providers Care Architectural Model Maker Name Role Phone Lloyd Hill MD Primary Care Provider + Allergies Active Allergy Reactions Criticality Noted Date Comments Sulfa Antibiotics Hives,Rash Medium 01/01/2007 Other reaction(s): rash Other reaction(s): rash Tetanus Toxoids Rash Low 10/08/2020 Medications glimepiride (AMARYL) 2 MG tablet Daily. Active pantoprazole (PROTONIX) 40 mg in 100mL NS IVPB Daily. 11/07/2021 Active aspirin (aspirin) 81 MG EC tablet Adult Aspirin Regimen 81 mg tablet,delay ed release Take 1 tablet every day by oral route. Active escitalopram (Lexapro) 10 MG tablet Lexapro 10 mg tablet Take 1 tablet every day by oral route. Active Social History Tobacco Use Types Packs/Day Years Used Date Smoking Tobacco: Never Assessed Abuse Screen Answer Date Recorded Unsafe at Home or Work/School Not on file Feels Threatened by Someone? Not on file 12/2022 Does Anyone Keep You from Co ntacting Others or Doint Things Outside the Home? Not on file 01/26/2023 Physical Sign of Abuse Present Not on file 1 Housing Stability Answer Date Recorded Current Living Arrangements Not on file 12/2022 Potentially Unsafe Housing Conditions Not on jessica e 01/26/2023 Family and Community Support Answer Juni e Recorded Help with Day-to-Day Activities Not on file 01/26/2023 Lonely or Isolated Not on file 01/26/2023 Employment Answer Date Recorded Do you want help finding or keeping work or a juvenal b? Not on file 01/26/2023 Disabilities Answer Date Recorded Concentrating, Remembering, or Making Decisions Difficulty Not on file 01/26/2023 Doing Errands Independently Difficulty Not on fi le 01/26/2023 Education Answer Date Recorded Help with school or training? Not on file Preferred Language Not on file 01/26/2023 Comments Unknown Sex and Gender Information Value Date Recorded Sex Assigned at Not on file Legal Sex Female 11:36 AM EDT Gender Identity Not on file Sexual Orientation Not on file Last Filed Vital Signs Vital Sign Reading Time Taken Comments Blood Pressure 149/82 11/13/2021 9:11 AM EDT Pulse 74 11/13/2021 9:11 AM EDT Temperature 36.2 C (97.1 F) 11/13/2021 7:54 AM EDT Respiratory Rate 16 11/13/2021 9:11 AM EDT Oxygen Saturation 98% 11/13/2021 8:53 AM EDT Inhaled Oxygen Concentration - - Weight 86.2 kg (190 lb) 11/13/2021 7:54 AM EDT Height 165.1 cm (5' 5 ) 11/13/2021 7:54 AM EDT Body Mass Index 31.62 11/13/2021 7:54 AM EDT Plan of Treatment Health Maintenance Due Date Last Done Comments Annual Gynecologic Pelvic an d Breast Exam 1965 MAMMOGRAM 2007 COLOGUARD 2012 COLON CANCER SCREENING 5 YEA R SIGMOIDOSCOPY 2012 COLONOSCOPY 2012 COL[address]ECTAL CANCER SCREENING 2012 CT COLONOGRAPHY 2012 FECAL OCCULT BLOOD TEST 2012 03/16/2007 FIT Testing (1 year) 2012 Pneumococcal Vaccine 50+ (1 of 1 - PCV) 2017 ZOSTER VACCINE (1 of 2) 2017 ANNUAL PHYSICAL 11/12/2021 HEPATITIS C SCREENING 11/12/2021 COVID-19 Vaccine ( season) 12/20/202305/2020 INFLUENZA VACCINE 01/18/2025 02/01/2019, , 01/06/2017 Insurance [facility] BLUE CROSS BLUE SHIELD PPO [place] BLUE [employer]OSS BLUE [employer]IELD PPO Care Teams Architectural Model Maker Relationship Specialty Start Date End Date Lloyd Hill MD [address] [place] [id number] PCP - General Internal Medicine 10/23/21
--- OUTSIDE RECORDS SUMMARY | 2024-11-08 08:21 | XMS_ITS | Clinical Summary ---
Author Organization [facility] Address [address] [place] [address] Care Team Providers Care Care Nurse Rn Name Role Phone Tomy Reid MD Primary Care Provider [phone] Allergies Active Allergy Reactions Criticality Noted Date Comments Amlodipine Other - please document in the comment field Low 10/08/2020 Other reaction(s): swelling in ankles Other reaction(s): swelling in ankles Bisoprolol Other - please document in the comment field Low 10/08/2020 Other reaction(s): swelling in ankles Other reaction(s): swelling in ankles Bisoprolol-Hydrochlorothiazi de Other - please document in the comment field Low 04/16/2021 Other reaction(s): swelling in ankles Chlorthalidone Other - please document in the comment field Low 10/08/2020 Dulaglutide Other - please document in the comment field Low 10/08/2020 Hydralazine Other - please document in the comment field Low 10/08/2020 Hydrochlorothiazide Other - please document in the comment field Low 10/08/2020 Influenza Virus Vaccine Rash Medium 02/03/2019 Metformin Hcl Other - please document in the comment field Low 01/09/2016 Sulfa Drugs Rash Low 01/01/2007 Other reaction(s): rash Other reaction(s): rash Sulfacetamide Hives Medium 07/22/2012 Tetanus Toxoids Rash Low 10/08/2020 Medications dexlansoprazole (Dexilant) [address] capsule Take 1 capsule by mouth 1 (one) time each day before breakfast. Active escitalopram (Lexapro) 10 MG tablet Take 1 tablet by mouth 1 (one) time each day. 1 Active pioglitazone (Actos) 15 MG tablet Take 1 tablet by mouth 1 (one) time each day. 1 Active glimepiride (Amaryl) 2 MG tablet Take 2 mg by mouth 1 (one) time each day. 0 Active olmesartan (BENIcar) 20 MG tablet Take 1 tablet (20 mg total) by mouth 1 (one) time each day. 90 tablet 3 1 Active semaglutide (Rybelsus) 3 MG tablet 1 (one) time each day. Active ketoconazole (NIZOral) 2 % cream 2 Active ketoconazole (NIZOral) 2 % cream ketoconazole 2 % topical cream APPLY TO THE AFFECTED AREA(S) BY TOPICAL ROUTE ONCE DAILY Active cholecalciferol (D 1000) 25 MCG (1000 UT) capsule 1 (one) time each day at the same time. Active calcium carbonate-vitam in D (Calcium 600+D) 600-200 MG-UNIT tablet every 8 (eight) hours. Active Active Problems Problem Noted Date Diagnosed Date Breast cyst 08/05/2021 Dribbling of urine 07/22/2021 PONV (postoperative nausea and vomiting) 022 Generalized anxiety disorder 04/23/2021 Irritable bowel syndrome with constipation 04/23 Irritable bowel syndrome with diarrhea 2 Migraine without aura, not refractory 04/23/2021 Pain in limb 04/23/2021 Sensorineural hearing loss 04/23/2021 Primary osteoarthritis 04/23/2021 Sjogren's syndrome 04/23/2021 Vitamin D deficiency 04/23/2021 Disorder of breast implant 09/04/2020 Hypertension 08/23/2020 Edema of lower extremity 10/03/2019 Gastroesophageal reflux disease 03/10/2019 Urinary incontinence 03/10/2019 Essential hypertension 03/10/2019 Presbyopia 02/01/2019 Type 2 diabetes mellitus without complication 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 03/11/2016 Disorder associated with type 2 diabetes mellitu s 01/09/2016 Obesity 01/09/2016 Bilateral tinnitus 12/04/2015 Ingrowing nail 11/29/2015 Hyperglycemia 11/05/2015 Prediabetes 11/05/2015 Acquired hallux rigidus 08/02/2015 Pain in right foot 08/02/2015 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 Chronic tension-type headache 02/26/2015 Immunizations Immunization Administration Dates Next Due Mumps 11/24/2005 Family History Medical History Relation Name Comments Diabetes Father Heart attack Mother Hypertension Mother abdominal aortic aneurysm (AAA) Mother Relation Name Status Comments Father Mother Social History Tobacco Use Types Packs/Day Years Used Date Smoking Tobacco: Never Smokeless Tobacco: Never Alcohol Use Standard Drinks/Week Comments No 0 (1 standard drink = 0.6 oz pur e alcohol) Comments No Sex and Gender Information Value Date Recorded Sex Assigned at Female 04/16/2021 10:02 AM EST Legal Sex Female 8:32 PM EDT Gender Identity Female 04/16/2021 10:02 AM EST Sexual Orientation Straight 04/16/2021 10 :02 AM EST Last Filed Vital Signs Vital Sign Reading Time Taken Comments Blood Pressure 149/80 08/05/2021 3:41 PM EDT Pulse 61 08/05/2021 3:41 PM EDT Temperature 36.5 C (97.7 F) 08/05/2021 3:41 PM EDT Respiratory Rate 15 04/26/2021 5:15 PM EST Oxygen Saturation 99% 07/22/2021 12:25 PM EDT Inhaled Oxygen Concentration - - Weight 83.1 kg (183 lb 4.8 oz) 08/05/2021 3:41 P M EDT Height 165.1 cm (5' 5 ) 08/05/2021 3:41 PM EDT Body Mass Index 30.5 08/05/2021 3:41 PM EDT Plan of Treatment Health Maintenance Due Date Last Done Comments [facility]-Depression Screening 1965 [facility]-Infant/Child/Adol SDOH Screenings 1965 [facility]- SDOH Screenings 1985 [facility]-Adult SDOH Screenings 1985 [facility]-Hepatitis B Vaccines (1 of 3 - 19+ 3-dose series) 1986 [facility]-Pap Smear 1988 [facility]-Cervical Cancer Screening 1997 [facility]-HPV/Cotest 1997 CT Colonography 2012 Colonoscopy 2012 FIT-DNA 2012 FIT 2012 FOBT 2012 Sigmoidoscopy 2012 [facility]-Colorectal Cancer Screening 2012 [facility]-Pneumococcal Vaccine: 50+ Years (1 of 1 - PCV) 2017 [facility]-Zoster Vaccines (1 of 2) 2017 [facility]-DTaP,Tdap,and Td Vaccines (1 - Tdap) 03/11/2019 03/10/2019 [id number] Vaccine (2 - season) 2023 12/20/2020 [facility]-Influenza Vaccine (#1) 12/19/202402/01, 01/11/2018, 01/06/2017, Additional history exists [facility]-Hepatitis A Vaccines Aged Out 01/18/2019, 12/20 No longer eligible based on patient's age to complete this topic HPV Vaccines Aged Out No longer eligi ble based on patient's age to complete this topic [facility]-HIB Vaccines Aged Out No longer e ligible based on patient's age to complete this topic [facility]-IPV Vaccines Aged Out No longer e ligible based on patient's age to complete this topic [facility]-Rotavirus Vaccines Aged Out No lo nger eligible based on patient's age to complete this topic Insurance JONATHAN JONATHAN Care Teams Care Nurse Rn Relationship Specialty Start Date End Date Tomy Reid MD [address] [place] [address] PCP - General 08/31/20
--- OUTSIDE RECORDS SUMMARY | 2024-11-08 08:21 | XMS_ITS | Patient Health Record ---
Author Organization [facility] Address [address] [place] [address] Care Team Providers Care Treating And Pumping Supervisor Name Role Phone AnishTomy bone Primary Care Provider Della Fregoso Unavailable [phone] Migration, Provider Unavailable Unavailable Allergies Allergen (clinical drug ingredient) Drug/Non Drug Allergy documented on EMR Reaction Allergy Type Onset Date Status SULFA (uncoded) rash Allergy Acti ve bisoprolol Bisoprolol Fumarate swelling in ankles Drug Allergy Active bisoprolol / hydrochlorothiazide Bisoprolol-hydro CHLOROthiazide swelling in ankles Drug Allergy Active amlodipine amLODIPine swelling in ankles Drug Allergy Active Results Component Value Reference Range Notes H-VITB12 Reviewed date:01/30/2024 08:54:45 AM Interpretation: Performing Lab: Notes/Report: VITB12 > 1000 239-931 pg/mL H-TVITD Reviewed date:01/30/2024 08:54:45 AM Interpretation: Performing Lab: Notes/Report: TVITD 84.5 30-100 ng/mL Deficient <20 ng/mL Insufficient 20-30 ng/mL Sufficient 30-100 ng/mL Potential Toxicity >100 ng/mL M-Thyroid Stimulating Hormon e Reviewed date:01/30/2024 08:54:46 AM Interpretation: Performing Lab: Notes/Report: TSH 1.01 0.465-4.68 uIU/mL M-Magnesium Reviewed date:01/30/2024 08:54:46 AM Interpretation: Performing Lab: Notes/Report: MG 1.9 1.6-2.3 mg/dl M-Hemoglobin A1C Reviewed date:01/30/2024 08:54:46 AM Interpretation: Performing Lab: Notes/Report: HGBA1C 4.9 4.0-6.0 % < 6% Non-Diabetic Level < 7% Controlled Diabetic Level > 8% Poorly Controlled Diabetic Level M-Comprehensive Metabolic Pa kindra Reviewed date:01/30/2024 08:54:45 AM Interpretation: Performing Lab: Notes/Report: NA 136 136-145 mmol/L K 4.1 3.5-5.1 mmoL/L CL 103 98-107 mmol/L CO2 25 22.0-30.0 mmol/L GAP 12.1 5-15 mEq/L BUN 10 7-17 mg/dl CREATT 0.80 0.52-1.04 mg/dl GFRAA 90 >60 ML/MIN EGFR 74 >60 ml/min GLU 84 74-100 mg/dl CA 9.4 8.4-10.2 mg/dl BILIT 0.7 0.2-1.3 mg/dl AST 29 14-36 U/L ALT 10 12-78 U/L TP 6.7 6.3-8.2 g/dl ALB 4.3 3.5-5.0 g/dl GLOB 2.4 1.3-3.2 g/dL AGRATIO 1.8 1.1-1.8 ALP 64 38-126 U/L M-Complete Blood Count Auto Diff Reviewed date:01/30/2024 08:54:45 AM Interpretation: Performing Lab: Notes/Report: WBC 8.2 4.8-10.8 K/mm3 RBC 4.28 4.20-5.40 M/mm3 HGB 13.0 12.2-16.2 g/dL HCT 37.5 37.0-47.0 % MCV 87.8 81-99 fl MCH 30.4 27.0-31.2 pg MCHC 34.6 31.8-35.4 g/dL RDW 13.8 11.5-17.5 % PLT 214 142-424 K/mm3 MPV 8.1 7.4-10.4 fl NE% 63.2 37.0-80.0 % LY% 26.6 10-50 % MO% 6.7 1.7-9.3 % EO% 2.7 0.1-12.0 % BA% 0.7 0.1-2.0 % NE# 5.2 1.8-7.8 K/mm3 LY# 2.2 0.7-4.5 K/mm3 MO# 0.6 0.1-1.0 K/mm3 EO# 0.2 0.0-0.4 K/mm3 BA# 0.1 0-0.2 K/mm3 X ray : Chest Reviewed date:01/30/2024 11:00:33 AM Interpretation: Performing Lab: Notes/Report: Medications Medication SIG (Take, Route, Frequency, Duration) Notes Start Date End Date Status Metoprolol Tartrate 25 MG 1 tab(s) orally 2 times a day Active Famotidine 40 MG 1 tab(s) orally once a day (at bedtime); Duration: 90 days Active Ozempic (0.25 or 0.5 MG/DOSE) 2 MG/3ML [...] once ; Duration: 10 days 06/29/2024 Active Nystatin 642595 UNIT/ML 5 mL orally swish 4 times a day; Duration: 14 days 07/01/2024 Active Breyna 160 MCG-4.5 MCG/INH 2 INH INHALED 2 TIMES A DAY; Duration: 90 DAYS *Please review and pick correct strength-formulati on from [employer] options. If intended option is not shown, discontinue and re-order from Quick Search* 06/29/2024 Active BUDESONIDE-FORMOTER OL FUMARATE DIHYDRATE 160 MCG-4.5 MCG/INH 2 INH INHALED 2 TIMES A DAY; Duration: 30 DAYS Please dispense spacer for MDI also... thank you! *Please review for potential replacement for e-prescription and drug interaction check* 02/22/2024 Active Immunizations Vaccine Route Administration Date Status Comme nts Hepatitis B (#2) Unknown 01/13/2006 Administered Hepatitis B (#3) Unknown 05/22/2006 Administered MMR-ll Unknown 01/08/2006 Administered PPD Unknown 11/27/2006 Administered Recombivax (Hepatitis B Pediatric) Unknown 11/21/2005 A dministered Problems Problem Type SNOMED Code ICD Code Onset Dates Problem Status W/U Status Risk Notes Problem Information temporarily unavailable Generalized anxiety disorder (F41.1) Active confirmed Problem Information temporarily unavailable Irritable bowel syndrome with diarrhea (K58.0) Active confirmed Problem Information temporarily unavailable Depression with anxiety (F41.8) Active confirmed Problem Information temporarily unavailable Vitamin D deficiency (E55.9) Active confirmed Problem Information temporarily unavailable GERD without esophagitis (K21.9) Active confirmed Problem Information temporarily unavailable Hypertension, essential (I10) Active confirmed Problem Information temporarily unavailable Irritable bowel syndrome with constipation (K58.9) Active confirmed Problem Information temporarily unavailable Foot pain, right (M79.671) Active confirmed Problem Information temporarily unavailable Mild intermittent asthma without complication (J45.20) Active confirmed Problem Information temporarily unavailable Primary osteoarthritis involving multiple joints (M15.0) Active confirmed Problem Information temporarily unavailable Migraine without aura and without status migrainosus, not intractable (G43.009) Active confirmed Problem Information temporarily unavailable History of vitamin D deficiency (Z86.39) Active confirmed Problem Information temporarily unavailable Type 2 diabetes mellitus without complication, without long-term current use of insulin (E11.9) Active confirmed Problem Information temporarily unavailable Sjogren's syndrome (M35.00) Active confirmed Problem Information temporarily unavailable Unilateral sensorineural hearing loss (H90.5) Active confirmed Problem Information temporarily unavailable Urinary incontinence, post-void dribbling (N39.43) Active confirmed Vital Signs Heart Rate 72 /min 11/07/2024 Temperature 97.7 degrees Fahrenheit 11/07/2024 Oximetry 99 01/29/2024 Blood pressure diastolic 84 mm Hg 11/07/2024 Height 5 ft 6 in in 11/07/2024 Blood pressure systolic 114 mm Hg 11/07/2024 Weight 150 lbs 11/07/2024 BMI 24.21 kg/m2 11/07/2024 Encounters Encounter Location Date Provider Diagnosis [facility] [address] [place] [address] [place] [address] 07/23/2024 Provider Migration Mild intermittent asthma without complication J45.20 ; Recurrent acute serous otitis media of right ear H65.04 and Yeast vaginitis B37.31 [facility] [address] [facility] [address] [place], [place] [address] 01/29/2024 Tomy Besson Breathlessness R06.8 1 ; Chest pain, unspecified type R07.9 ; GERD without esophagitis K21.9 ; Vitamin D deficiency E55.9 ; Type 2 diabetes mellitus without complication, without long-term current use of insulin E11.9 and Routine medical exam Z00.00 [facility] [address] [facility] [address] [place] [address] 02/22/2024 Tomy Besson Mild intermittent asthma without complication J45.20 [facility] [address] [facility] [address] [place], [place] [address] 06/29/2024 Tomy Besson Mild intermittent asthma without complication J45.20 ; Upper respiratory virus J06.9 ; Recurrent acute serous otitis media of right ear H65.04 and Yeast vaginitis B37.31 [facility] [address] [facility] [address] [place], [place] [address] 11/07/2024 Tomy Besson Hypertension, essential I10 ; Type 2 diabetes mellitus without complication, without long-term current use of insulin E11.9 ; History of vitamin D deficiency Z86.39 ; Mild intermittent asthma without complication J45.20 ; Acute nonintractable headache, unspecified headache type R51.9 and Diplopia H53.2 [facility] [address] [address] 02/23/2024 Tomy Besson Mild intermittent asthma without complication J45.20 [facility] [address] [address] 04/26/2024 Tomy Besson [facility] [address] [place] [address] 05/16/2024 Tomy Besson Mild intermittent asthma without complication J45.20 [facility] [address] [place], [place] [address] 07/01/2024 Della Fregoso [facility] [address] [address] 07/05/2024 Tomy Reid Mild intermittent asthma without complication J45.20 ; Recurrent acute serous otitis media of right ear H65.04 and Yeast vaginitis B37.31 [facility] [address] [place] [address] 07/30/2024 Tomy Reid [facility] [place] [address] [facility] [address] [place], [place] [address] 08/15/2024 Tomy Reid [facility] [address] [place] [address] 11/08/2024 Tomy Reid Assessments Encounter Date Diagnosis (ICD Code) Assessment Notes Treatment Notes Treatment Clinical Notes Section Notes 01/29/2024 Chest pain, unspecified type (ICD-10 - R07.9) EKG completely normal. Given normal stress test 2 years ago will workup issues with breathing symptoms first 01/29/2024 Breathlessness (ICD-10 - R06.81) Unusual symptom, could be that she is noticing periodic or sigh breaths, but will workup with chest x-ray and PFTs. 02/22/2024 Mild intermittent asthma without complication (ICD-10 - J45.20) Went over PFTs in detail. Patient very pleased that we might have an answer to her dyspnea. Start ICS/LABA combination. Explained in detail and demonstrated use of MDI and spacer 02/23/2024 Mild intermittent asthma without complication (ICD-10 - J45.20) 05/16/2024 Mild intermittent asthma without complication (ICD-10 - J45.20) 06/29/2024 Mild intermittent asthma without complication (ICD-10 - J45.20) Symptoms well controlled. Prefers Breyna inhaler to substitute. Will send to [facility] pharmacy to make it easier to obtain since her current pharmacy is out of stock. 06/29/2024 Upper respiratory virus (ICD-10 - J06.9) 1 wk hx of mild URI symptoms. Likely RSV based on sick contacts. Continue symptomatic care with mucinex, tylenol prn, fluids. RTC if worsening after 10 days. Will send RX for flonase. 07/05/2024 Mild intermittent asthma without complication (ICD-10 - J45.20) 07/23/2024 Mild intermittent asthma without complication (ICD-10 - J45.20) 11/07/2024 Hypertension, essential (ICD-10 - I10) Her hypertension is well managed by Olmesartan Medoxomil and metoprolol. In office her BP was 114/84. 11/07/2024 Type 2 diabetes mellitus without complication, without long-term current use of insulin (ICD-10 - E11.9) Her T2D is well managed with Ozempic. No acute concerns at this time. 01/29/2024 GERD without esophagitis (ICD-10 - K21.9) Stable on famotidine, will refill 11/07/2024 History of vitamin D deficiency (ICD-10 - Z86.39) No concerns at this time. 07/23/2024 Recurrent acute serous otitis media of right ear (ICD-10 - H65.04) 07/05/2024 Recurrent acute serous otitis media of right ear (ICD-10 - H65.04) 06/29/2024 Recurrent acute serous otitis media of right ear (ICD-10 - H65.04) 01/29/2024 Vitamin D deficiency (ICD-10 - E55.9) Check labs as noted. I will review personally 07/05/2024 Yeast vaginitis (ICD-10 - B37.31) 06/29/2024 Yeast vaginitis (ICD-10 - B37.31) 07/23/2024 Yeast vaginitis (ICD-10 - B37.31) 11/07/2024 Mild intermittent asthma without complication (ICD-10 - J45.20) Her asthma is well managed with Breyna. No concerns at this time. 11/07/2024 Acute nonintractable headache, unspecified headache type (ICD-10 - R51.9) We discussed getting an MRI of her head to assess the cause of the headaches. We also discussed getting an ESR and cortisol levels on her tomorrow morning. 01/29/2024 Type 2 diabetes mellitus without complication, without long-term current use of insulin (ICD-10 - E11.9) Doing well on GLP agent. Check A1c today. I will review all labs personally 01/29/2024 Routine medical exam (ICD-10 - Z00.00) Up-to-date with colonoscopy, mammogram and X RAY TECHNICIAN screening. Up-to-date on vaccines. Lifelong non-smoker. Otherwise healthcare maintenance up-to-date, good health Its, normal BMI. Did encourage exercise 11/07/2024 Diplopia (ICD-10 - H53.2) We discussed getting an MRI of her head to assess the cause of the diplopia. Plan Of Treatment Pending Test Test Name Order Date IVP 09/15/2006 EKG : In House 12/26/2010 MRI : Head, Without Contrast 11/07/2024 H-VITAMIN B12 05/19/2016 H-CMP 05/19/2016 H-MAGNESIUM 05/19/2016 H-LIPID PANEL 05/19/2016 H-LIPID PANEL 03/09/2009 C-FREE T4 10/16/2010 C-URINE CULTURE 07/30/2011 H-CCCP 02/10/2008 N-CRP 04/30/2018 Comp. Metabolic Panel (14) 04/30/2018 CBC With Differential/Platelet 9 Sedimentation Rate-Westergren 04/30/2018 Lipid Panel 04/30/2018 Hemoglobin A1c 04/30/2018 Pulmonary Function Test- Complete 2023 M-Miscellaneous Test 10/31/2019 M-Comprehensive Metabolic Panel 03/11/20 M-Hemoglobin A1C 03/11/2021 M-Lipid Panel 03/11/2021 M-Thyroid Stimulating Hormone 03/11/2021 M-Vitamin B12 03/11/2021 M-Vitamin B12 01/29/2024 M-Vitamin B12 09/26/2022 M-Vitamin D 25 Hydroxy 09/26/2022 M-Vitamin D 25 Hydroxy 01/29/2024 M-Vitamin D 25 Hydroxy 03/11/2021 THYROID PANEL WITH TSH (7444) 11/07/2024 LIPID PANEL, STANDARD (7600) 11/07/2024 COMPREHENSIVE METABOLIC PANEL (87364) CBC (INCLUDES DIFF/PLT) (6399) HEMOGLOBIN A1c (496) 11/07/2024 VITAMIN B12/FOLATE, SERUM PANEL (7065) 0 11/07/2024 CORTISOL, A.M. (4212) 11/07/2024 VITAMIN D,25-OH,TOTAL,IA [phone] Insurance Providers Payer Name Payer Address Payer Phone Subscriber Number Group Number Insured Name Patient Relationship to Insured Coverage Start Date Coverage End Date [facility] [address] [place] [address] [id number] Zaynab Holloway Self - patient is the insured Medications Administered Medication Instructions Date of Administration Dosage Notes Ceftriaxone 500 11/16/2017 500 mg Triamcinolone Acetonide 40mg Injection 11/16/2017 1 mL Triamcinolone Acetonide 40mg Injection 09/24/2018 1 mL Kenalog 10/05/2015 1 mL Medical (General) History Medical History History ICD Code hormone replacement therapy hypertension anxiety Mild osteopenia on DEXA 08/06 Fibromyalgia Sjogrens syndrome Diabetes Colonoscopy Surgical History Surgery Date(Month/Year) tonsillectomy hysterectomy 2001 cholecystectomy 1999 appendectomy nasal septoplasty 2013 fascial sling for urethra 2018
[2024-11-08 08:49] LABS: Hematocrit 37.5 % (37.0-47.0); Hemoglobin 12.8 g/dL (12.2-16.2); Immature Granulocytes % 0.4 %; Mean Corpuscular HGB Conc 34.1 g/dL (31.8-35.4); Mean Corpuscular Hemoglobin 30.3 pg (27.0-31.2); Mean Corpuscular Volume 88.7 fl (81-99); Nucleated Red Blood Cells % 0 %; Platelet Count 224 K/mm3 (142-424); Red Blood Count 4.23 M/mm3 (4.20-5.40); Red Cell Distribution Width-SD 43.0 fL; White Blood Count 7.5 K/mm3 (4.8-10.8)
[2024-11-08 09:20] LABS: Alanine Aminotransferase 11 U/L (12-78); Albumin Level 4.3 g/dl (3.5-5.0); Albumin/Globulin Ratio 1.9 (1.1-1.8); Alkaline Phosphatase 73 U/L (38-126); Anion Gap 7.8 mEq/L (5-15); Aspartate Amino Transferase 22 U/L (14-36); Bilirubin,Total 0.8 mg/dl (0.2-1.3); Blood Urea Nitrogen 10 mg/dl (7-17); Calcium 10.9 mg/dl (8.4-10.2); Carbon Dioxide 32 mmol/L (22.0-30.0); Chloride 103 mmol/L (98-107); Cholesterol 132 mg/dl (140-200); Creatinine,Serum 0.90 mg/dl (0.52-1.04); Estimated Glomerular Filt Rate 65 ml/min (>60); GFR (African American) 78 ML/MIN (>60); Globulin 2.3 g/dL (1.3-3.2); Glucose 121 mg/dl (74-100); HDL Cholesterol 54 mg/dl (40-60); Potassium 3.8 mmoL/L (3.5-5.1); Sodium 139 mmol/L (136-145); Total Protein,Serum 6.6 g/dl (6.3-8.2); Triglycerides 68 mg/dl (30-150)
[2024-11-08 09:37] LABS: Hemoglobin A1C 4.9 % (4.0-6.0)
[2024-11-08 09:40] LABS: 25-OH Vitamin D, Total 72.4 ng/mL (30-100)
[2024-11-08 09:41] LABS: Free Thyroxine Index 2.8 ug/dL (5.93-13.13); T4 (Thyroxine) 8.6 ug/dl (5.53-11.0); Triiodothryronine (T3) Uptake 33 % (23.5-40.5)
[2024-11-08 09:54] LABS: Thyroid Stimulating Hormone 1.15 uIU/mL (0.465-4.68)
[2024-11-08 10:15] LABS: Vitamin B12 > 1000 pg/mL (239-931)
[2024-11-08 10:27] LABS: Folate 5.98 ng/mL
[2024-11-09 15:11] LABS: Cortisol,AM 12.4 ug/dL (6.2-19.4)
== END 2024-11-08 23:59 | disposition home or self-care (01) ==
LOC: LAB 08:15
PROVIDERS: PCP Internal Medicine Adolescent Medicine; Visit Provider Internal Medicine Adolescent Medicine
DX: H53.2 Diplopia (principal); E11.9 Type 2 diabetes mellitus without complications; Z86.39 Personal history of other endocrine, nutritional and metabolic disease; R51.9 Headache, unspecified
CPT/HCPCS: 36415; 80053; 80061; 82306; 82533; 82607; 82746; 83036; 84436; 84443; 84479; 85025

== ENCOUNTER 2024-11-09 14:05 | Outpatient (CLI) | payer BC, OTHER, SELFPAY ==
--- OUTSIDE RECORDS SUMMARY | 2024-07-23 17:30 | XMS_ITS ---
Author Organization [facility] PE D KAYLIE Address [address] [place] [address] Care Team Providers Care Corn Crop Supervisor Name Role Phone FranklinTomy Primary Care Provider [phone] Migration, Provider Unavailable Unavailable Allergies Allergen (clinical drug ingredient) Drug/Non Drug Allergy documented on EMR Reaction Allergy Type Onset Date Status SULFA (uncoded) rash Allergy Acti ve bisoprolol Bisoprolol Fumarate swelling in ankles Drug Allergy Active bisoprolol / hydrochlorothiazide Bisoprolol-hydro CHLOROthiazide swelling in ankles Drug Allergy Active amlodipine amLODIPine swelling in ankles Drug Allergy Active REASON FOR VISIT [facility] To [facility] Conversion Encounter Medications Medication SIG (Take, Route, Frequency, Duration) Notes Start Date End Date Status Nystatin 500916 UNIT/ML 5 mL orally swish 4 times [...] review and pick correct strength-formulati on from [employer] options. If intended option is not shown, discontinue and re-order from Quick Search* 06/29/2024 Active BUDESONIDE-FORMOTER OL FUMARATE DIHYDRATE 160 MCG-4.5 MCG/INH 2 INH INHALED 2 TIMES A DAY; Duration: 30 DAYS Please dispense spacer for MDI also... thank you! *Please review for potential replacement for e-prescription and drug interaction check* 02/22/2024 Active Encounters Encounter Location Date Provider Diagnosis [facility] [place] [address] [facility] [address] [place] [address] 07/23/2024 Provider Migration Mild intermittent asthma without [...] Sig Start Date Stop Date Notes Nystatin 098395 UNIT/ML 5 mL orally swis h 4 times a day; Duration: 14 days 07/01/2024 Fluconazole 150 MG 1 tab(s) orally once; Duration: 10 days 06/29/2024 Fluticasone Propionate 50 MCG/ACT 2 spray(s) in each nostril once a day; Duration: 90 days 06/29/2024 Breyna 160 MCG-4.5 MCG/INH 2 INH INHALED 2 TIMES A DAY; Duration: 90 DAYS 06/29/2024 *Please review and pick correct strength-formulation from [employer] options. If intended option is not shown, discontinue and re-order from Quick Search* Progress Notes * Zaynab HOLLOWAYDOB: 7 (59 yo F)Acc No.[id number]:07/23/2024 Patient: Zaynab HENDRIX Provider: Joe Bethea :1965 A ge:59 Y S ex:Female Date:07/23/2024 Address:[address] [place], [place] [address], [id number] Pcp:Tomy Reid Subjective: * Chief Complaints: * [...] 1. 4. O thers Start Nystatin Suspension, 716244 UNIT/ML, 5 mL, orally, swish 4 times a day, 14 days, 280, Refills 0. * * Electronic signature of Prov ider Migration on 11/09/2024 at 02:08 PM EDT Sign off status: Pending * Provider: Joe crespo Migration Date: 0 07/23/2024 Generated for Nelida quinonez/Jaki/Denitting on: 0 11/09/2024 02:08 PM EDT
--- OUTSIDE RECORDS SUMMARY | 2024-11-07 10:00 | XMS_ITS ---
Author Organization [facility] PE D K[facility] Address [address] [place] [address] Care Team Providers Care Gear Machine Operator Name Role Phone Tomy Reid Primary Care [...] (at bedtime); Duration: 90 days Active Nystatin 449594 UNIT/ML 5 mL orally swish 4 times a day; Duration: 14 days 07/01/2024 Active Breyna 160 MCG-4.5 MCG/INH 2 INH INHALED 2 TIMES A DAY; Duration: 90 DAYS *Please review and pick correct strength-formulati on from [employer] options. If intended option is not shown, [...] 11/07/2024 Encounters Encounter Location Date Provider Diagnosis [facility] [address] [place] [address] 11/07/2024 Tomy Franklin Hypertension, essent ial I10 [...] PANEL, STANDARD (7600) 11/07/2024 COMPREHENSIVE METABOLIC PANEL (54435) CBC (INCLUDES DIFF/PLT) (6399) HEMOGLOBIN A1c (496) 11/07/2024 VITAMIN B12/FOLATE, SERUM PANEL (7065) 0 11/07/2024 CORTISOL, A.M. (4212) 11/07/2024 VITAMIN D,25-OH,TOTAL,IA (44698) 025 Next Appt Details Follow Up: prn, Reason: Progress Notes * Zaynab HOLLOWAY JDOB: [birth year] (59 yo F)Acc No.[id number]:11/07/2024 Progress Notes Patient: Shruti HENDRIXsundar Ayo Provider: Radha Reid MD :1965 A ge:59 Y S ex:Female Date:11/07/2024 Address:[address] [place], [id number] Subjective: * Chief Complaints: * 1 . [...] Father: . P aternal Grand Mother: , [place]. M aternal Grand Father: . M aternal Grand Mother: . P aternal uncle: alive, COPD. P aternal aunt: . M aternal uncle: alive. M aternal aunt: alive, 1 maternal aunt [place], 1 maternal aunt breast cancer,aneurysm. S iblings: [...] e-prescription and drug interaction check*, Taking Nystatin 520706 UNIT/ML Suspension 5 mL orally swish 4 times a day , Taking Breyna 160 MCG-4.5 MCG/INH AEROSOL 2 INH INHALED 2 TIMES A DAY , Notes to Pharmacist: *Please review and pick correct strength-formulation from [employer] options. If intended option is not shown, [...] STANDARD (7600) L AB: COMPREHENSIVE METABOLIC PANEL (11842) L AB: CBC (INCLUDES DIFF/PLT) (6399) L AB: HEMOGLOBIN A1c (496) L AB: VITAMIN B12/FOLATE, SERUM PANEL (7065) L AB: CORTISOL, A.M. (4212) L AB: VITAMIN D,25-OH,TOTAL,IA (28712) Notes: Her T2D is well managed with Ozempic. No acute concerns at this time. 3. H istory of vitamin D deficiency L AB: THYROID PANEL WITH TSH (7444) L AB: LIPID PANEL, STANDARD (7600) L AB: COMPREHENSIVE METABOLIC PANEL (84723) L AB: CBC (INCLUDES DIFF/PLT) (6399) L AB: HEMOGLOBIN A1c (496) L AB: VITAMIN B12/FOLATE, SERUM PANEL (7065) L AB: CORTISOL, A.M. (4212) L AB: VITAMIN D,25-OH,TOTAL,IA (42661) Notes: No concerns at this time. 4. M ild intermittent asthma without complication Notes: Her asthma is well managed with Breyna. No concerns at this time. 5. A cute nonintractable headache, unspecified headache type L AB: THYROID PANEL WITH TSH (7444) L AB: LIPID PANEL, STANDARD (7600) L AB: COMPREHENSIVE METABOLIC PANEL (45953) L AB: CBC (INCLUDES DIFF/PLT) (6399) L AB: HEMOGLOBIN A1c (496) L AB: VITAMIN B12/FOLATE, SERUM PANEL (7065) L AB: CORTISOL, A.M. (4212) L AB: VITAMIN D,25-OH,TOTAL,IA (51710) I maging: MRI : Head, Without Contrast * Notes: We discussed getting an MRI of her head to assess the cause of the headaches. We also discussed getting an ESR and cortisol levels on her tomorrow morning.??6.?Diplopia?LAB: THYROID PANEL WITH TSH (7444) ?LAB: LIPID PANEL, STANDARD (7600) ?LAB: COMPREHENSIVE METABOLIC PANEL (97995) ?LAB: CBC (INCLUDES DIFF/PLT) (6399) ?LAB: HEMOGLOBIN A1c (496) ?LAB: VITAMIN B12/FOLATE, SERUM PANEL (7065) ?LAB: CORTISOL, A.M. (4212) ?LAB: VITAMIN D,25-OH,TOTAL,IA (49780) ?Imaging: MRI : Head, Without Contrast* Pattie Dash 11/07/2024 02: 57:57 PM EDT > Precert not required for CPT 56417 * Notes: We discussed getting an MRI of her head to assess the cause of the diplopia.?? * Follow Up: p rn * * Sign off status: Completed true * Provider: Radha Reid MD Date: 11/07/2024 Generated for Scoobyi ng/Fahermelindag/eTransmitting on: 11/09/2024 02:08 PM EDT History and Physical Notes * [...]
--- OUTSIDE RECORDS SUMMARY | 2024-11-08 04:30 | XMS_ITS ---
Author Organization [facility] Address [address] [place] [address] Care Team Providers Care Target Aircraft Technician Name Role Phone Tomy Reid Primary Care Provider [phone] REASON FOR VISIT Lab Encounters Encounter Location Date Provider Diagnosis [facility] [address] [place] [address] 11/08/2024 Tomy Reid Plan Of Treatment No Information Progress Notes * Zaynab HOLLOWAYDOB: [birth year] (59 yo F)Acc No.[id number]:11/08/2024 LABS Patient: Zaynab HENDRIX Provider: Radha Reid MD :1965 A ge:59 Y S ex:Female Date:11/08/2024 Address:[address], [id number] Subjective: * Chief Complaints: * 1 . Lab. * Medical History: Objective: * Vitals: Assessment: Plan: * Treatment: * * Electronic signature of Serge Reid MD FAAP on 11/09/2024 at 02:08 PM EDT Sign off status: Pending * Provider: Radha Reid MD Date: 11/08/2024 Generated for Printi ng/Faxing/eTransmitting on: 11/09/2024 02:08 PM EDT
--- OUTSIDE RECORDS SUMMARY | 2024-11-09 14:09 | XMS_ITS | Encounter Summary ---
Author Organization [facility] Address [address] [place] [address] Care Team Providers Care Scarf And Anneal Operator Name Role Phone Tomy Reid MD Primary Care Provider [phone] Encounter Details Date Type Department Care Team ([facility] st Contact Info) Description 09/06/2020 Abstract [facility] [address] [facility], [address] [place] [address] Sonja Shields PA [address] [place] [address] Social History Tobacco Use Types [...] on filedocumented in this encounter Care Teams Scarf And Anneal Operator Relationship Specialty Start Date End Date Tomy Reid MD [address] [place] [address] PCP - General 08/31/20 documented as of this encounter
--- OUTSIDE RECORDS SUMMARY | 2024-11-09 14:09 | XMS_ITS | Patient Health Record ---
Author Organization [facility] Address [address] [place] [address] Care Team Providers Care Automation And Controls Supervisor Name Role Phone Heidi Faulkner Unavailable [phone] Allergies Allergen (clinical drug ingredient) Drug/Non Drug Allergy documented on EMR Reaction Allergy Type Onset Date Status sulfamethoxazole / trimethoprim SULFAMETHOXAZOLE-T RIMETHOPRIM Unspecified Drug Allergy 09/24/2009 Active Reason For Referral No Information Social History Social History Sexual History: Social Info Question Answer Notes Sexual History Had sex in the past 12 months (vaginal, oral, or anal)? Yes Drugs/Alcohol: Social Info Question Answer Notes Drugs Have you used drugs other than those for medical reasons in the past 12 months? No Alcohol Screen Did you have a drink containing alcohol in the past year? Yes Points 0 Interpretation Negative Tobacco Use: Social Info Question Answer Notes Tobacco Use/Smoking Are you a former smoker Tobacco use other than smoking: Are you an other tobac co user? No Problems Problem Type SNOMED Code ICD Code Onset Dates Problem Status W/U Status Risk Notes Problem Candidal vulvovaginitis (55611999) Anogenital candidiasis in female (B37.3) 010 Active confirmed CANDIDIASIS OF VULVA AND VAGINA Problem Candidal vulvovaginitis (03785456) Anogenital candidiasis in female (B37.3) 010 Active confirmed CANDIDIASIS OF VULVA AND VAGINA Problem Adult health examination (164752381) Adult general medical exam (Z00.00) 010 Active confirmed ANNUAL EXAM Plan Of Treatment No Information Medical (General) History Medical History History ICD Code ABORTIONS: 1 endometriosis ovarian cysts yeast infections BV gest. diabetes HTN IBS UTI SOCIAL HX: denies SOCIAL HX: denies TERAZOL 7 CREAM PREMARIN 0.625 MG/GM VAGINAL CREAM PREMARIN 1.25 MG ORAL TABLET PREMARIN 1.25 MG ORAL TABLET ARTHROTEC 75 TABS ZIAC 2.5-6.25 MG ORAL TABLET Surgical History Surgery Date(Month/Year) Hyst.-; cholecystectomy-2000; appen dectomy; tonsilectomy
--- OUTSIDE RECORDS SUMMARY | 2024-11-09 14:09 | XMS_ITS | Clinical Summary ---
Author Organization [facility] Address [address] [place] [address] Care Team Providers Care Senior Consultant Name Role Phone Tomy Reid MD Primary Care Provider [phone] Allergies Active Allergy Reactions Criticality Noted Date [...] Td Vaccines (1 - Tdap) 03/11/2019 03/10/2019 [id number] Vaccine (2 - season) 2023 12/20/2020 UKY-Influenza [...] this topic Insurance JONATHAN JONATHAN Care Teams Senior Consultant Relationship Specialty Start Date End Date Tomy Reid MD [address] [place] [address] PCP - General 08/31/20
--- OUTSIDE RECORDS SUMMARY | 2024-11-09 14:09 | XMS_ITS | Patient Health Record ---
Author Organization [facility] K[facility]LIE Address [address] [place] [address] Care Team Providers Care Control Area Operator Name Role Phone Franklin Tomy Primary Care Provider Della Fregoso Unavailable [phone] Migration, Provider Unavailable Unavailable Allergies Allergen (clinical drug ingredient) Drug/Non Drug Allergy documented on EMR Reaction Allergy Type Onset Date Status SULFA (uncoded) rash Allergy Acti ve bisoprolol Bisoprolol Fumarate swelling in ankles Drug Allergy Active bisoprolol / hydrochlorothiazide Bisoprolol-hydro CHLOROthiazide swelling in ankles Drug Allergy Active amlodipine amLODIPine swelling in ankles Drug Allergy Active Results Component Value Reference Range Notes M-Lipid Panel (Not yet revie wed by provider) Interpretation: Performing Lab: Notes/Report: Patient Fasting? Y TRIG 68 30-150 mg/dl CHOL 132 140-200 mg/dl DLDL 49.49 100-129 mg/dL VLDL 14 0-40 mg/dL HDL 54 40-60 mg/dl CHLHDL 2.4 1-3.5 M-Hemoglobin A1C (Not yet re viewed by provider) Interpretation: Performing Lab: Notes/Report: HGBA1C 4.9 4.0-6.0 % < 6% Non-Diabetic Level < 7% Controlled Diabetic Level > 8% Poorly Controlled Diabetic Level M-Comprehensive Metabolic Pa kindra (Not yet reviewed by provider) Interpretation: Performing Lab: Notes/Report: NA 139 136-145 mmol/L K 3.8 3.5-5.1 mmoL/L CL 103 98-107 mmol/L CO2 32 22.0-30.0 mmol/L GAP 7.8 5-15 mEq/L BUN 10 7-17 mg/dl CREATT 0.90 0.52-1.04 mg/dl GFRAA 78 >60 ML/MIN EGFR 65 >60 ml/min GLU 121 74-100 mg/dl CA 10.9 8.4-10.2 mg/dl BILIT 0.8 0.2-1.3 mg/dl AST 22 14-36 U/L ALT 11 12-78 U/L TP 6.6 6.3-8.2 g/dl ALB 4.3 3.5-5.0 g/dl GLOB 2.3 1.3-3.2 g/dL AGRATIO 1.9 1.1-1.8 ALP 73 38-126 U/L M-Complete Blood Count Auto Diff (Not yet reviewed by provider) Interpretation: Performing Lab: Notes/Report: WBC 7.5 4.8-10.8 K/mm3 RBC 4.23 4.20-5.40 M/mm3 HGB 12.8 12.2-16.2 g/dL HCT 37.5 37.0-47.0 % MCV 88.7 81-99 fl MCH 30.3 27.0-31.2 pg MCHC 34.1 31.8-35.4 g/dL RDW 13.3 11.5-17.5 % PLT 224 142-424 K/mm3 MPV 9.8 7.4-10.4 fl NE% 66.1 37.0-80.0 % LY% 23.1 10-50 % MO% 7.6 1.7-9.3 % EO% 2.3 0.1-12.0 % BA% 0.5 0.1-2.0 % NE# 5.0 1.8-7.8 K/mm3 LY# 1.7 0.7-4.5 K/mm3 MO# 0.6 0.1-1.0 K/mm3 EO# 0.2 0.0-0.4 Kmm3 BA# 0.0 0-0.2 K/mm3 RDW-SD 43.0 NRBC% 0 IG% 0.4 NRBC# 0 IG# 0.03 H-FOL (Not yet reviewed by ladi crespo) Interpretation: Performing Lab: Notes/Report: FOL 5.98 Normal Adult: 2.76->20 ng/mL Folate Deficent: 1.04-2.79ng/mL H-VITB12 (Not yet reviewed b y provider) Interpretation: Performing Lab: Notes/Report: VITB12 > 1000 239-931 pg/mL H-TVITD (Not yet reviewed by provider) Interpretation: Performing Lab: Notes/Report: TVITD 72.4 30-100 ng/mL Deficient <20 ng/mL Insufficient 20-30 ng/mL Sufficient 30-100 ng/mL Potential Toxicity >100 ng/mL M-Thyroid Panel (Not yet rev iewed by provider) Interpretation: Performing Lab: Notes/Report: FTI 2.8 5.93-13.13 ug/dL T4 8.6 5.53-11.0 ug/dl T3U 33 23.5-40.5 % TSH 1.15 0.465-4.68 uIU/mL H-TVITD Reviewed date:01/30/2024 08:54:45 AM Interpretation: Performing Lab: Notes/Report: TVITD 84.5 30-100 ng/mL Deficient <20 ng/mL Insufficient 20-30 ng/mL Sufficient 30-100 ng/mL Potential Toxicity >100 ng/mL H-VITB12 Reviewed date:01/30/2024 08:54:45 AM Interpretation: Performing Lab: Notes/Report: VITB12 > 1000 239-931 pg/mL X ray : Chest Reviewed date:01/30/2024 11:00:33 AM Interpretation: Performing Lab: Notes/Report: M-Complete Blood Count Auto Diff Reviewed date:01/30/2024 [...] 0.2 0.0-0.4 K/mm3 BA# 0.1 0-0.2 K/mm3 M-Comprehensive Metabolic Pa kindra Reviewed date:01/30/2024 08:54:45 [...] AGRATIO 1.8 1.1-1.8 ALP 64 38-126 U/L M-Hemoglobin A1C Reviewed date:01/30/2024 08:54:46 AM Interpretation: Performing Lab: Notes/Report: HGBA1C 4.9 4.0-6.0 % < 6% Non-Diabetic Level < 7% Controlled Diabetic Level > 8% Poorly Controlled Diabetic Level M-Magnesium Reviewed date:01/30/2024 08:54:46 AM Interpretation: Performing Lab: Notes/Report: MG 1.9 1.6-2.3 mg/dl M-Thyroid Stimulating Hormon e Reviewed date:01/30/2024 08:54:46 AM Interpretation: Performing Lab: Notes/Report: TSH 1.01 0.465-4.68 uIU/mL Medications Medication SIG (Take, Route, Frequency, Duration) [...] ; Duration: 10 days 06/29/2024 Active Nystatin 192050 UNIT/ML 5 mL orally swish 4 times a day; Duration: 14 days 07/01/2024 Active Breyna 160 MCG-4.5 MCG/INH 2 INH INHALED 2 TIMES A DAY; Duration: 90 DAYS *Please review and pick correct strength-formulati on from [employer] options. If intended option is not shown, discontinue and re-order from Quick Search* 06/29/2024 Active BUDESONIDE-FORMOTER OL FUMARATE DIHYDRATE 160 MCG-4.5 MCG/INH 2 INH INHALED 2 TIMES A DAY; Duration: 30 DAYS Please dispense spacer for MDI also... thank you! *Please review for potential replacement for e-prescription and drug interaction check* 02/22/2024 Active Immunizations Vaccine Route Administration Date Status Comme nts Recombivax (Hepatitis B Pediatric) Unknown 11/21/2005 A dministered PPD Unknown 11/27/2006 Administered MMR-ll Unknown 01/08/2006 Administered Hepatitis B (#3) Unknown 05/22/2006 Administered Hepatitis B (#2) Unknown 01/13/2006 Administered Problems Problem Type SNOMED Code ICD Code Onset Dates Problem Status W/U Status Risk Notes Problem Generalized anxiety disorder (01335379) Generalized anxiety disorder (F41.1) Active confirmed Problem Irritable bowel syndrome with diarrhea (565456406) Irritable bowel syndrome with diarrhea (K58.0) Active confirmed Problem Mixed anxiety and depressive disorder (228615627) Depression with anxiety (F41.8) Active confirmed Problem Vitamin D deficiency (08093121) Vitamin D deficiency (E55.9) Active confirmed Problem Gastroesophageal reflux disease (306939928) GERD without esophagitis (K21.9) Active confirmed Problem Essential hypertension (56705887) Hypertension, essential (I10) Active confirmed Problem Irritable bowel syndrome characterized by constipation (124495524) Irritable bowel syndrome with constipation (K58.9) Active confirmed Problem Pain in limb (77792109) Foot pain, right (M79.671) Active confirmed Problem Mild intermittent asthma (534777450) Mild intermittent asthma without complication (J45.20) Active confirmed Problem Primary osteoarthritis (550233084) Primary osteoarthritis involving multiple joints (M15.0) Active confirmed Problem Migraine without aura, not refractory (676423375) Migraine without aura and without status migrainosus, not intractable (G43.009) Active confirmed Problem History of nutritional deficiency (07204245211780) History of vitamin D deficiency (Z86.39) Active confirmed Problem Type II diabetes mellitus without complication (373660941) Type 2 diabetes mellitus without complication, without long-term current use of insulin (E11.9) Active confirmed Problem Sjogren's syndrome (12758606) Sjogren's syndrome (M35.00) Active confirmed Problem Sensorineural hearing loss (48439256) Unilateral sensorineural hearing loss (H90.5) Active confirmed Problem Dribbling of urine (60125304) Urinary incontinence, post-void dribbling (N39.43) Active confirmed Vital Signs Heart Rate 72 /min 11/07/2024 Temperature 97.7 degrees Fahrenheit 11/07/2024 Blood pressure diastolic 84 mm Hg 11/07/2024 Oximetry 99 01/29/2024 Height 5 ft 6 in in 11/07/2024 Blood pressure systolic 114 mm Hg 11/07/2024 Weight 150 lbs 11/07/2024 BMI 24.21 kg/m2 11/07/2024 Encounters Encounter Location Date Provider Diagnosis [facility] [place] [address] [facility] [address] [place] [address] 07/23/2024 Provider Migration Mild intermittent asthma without complication J45.20 ; Recurrent acute serous otitis media of right ear H65.04 and Yeast vaginitis B37.31 [facility] [place] [address] [facility] [address] [place] [address] 01/29/2024 Tomy Besson Breathlessness R06.8 1 ; Chest pain, unspecified type R07.9 ; GERD without esophagitis K21.9 ; Vitamin D deficiency E55.9 ; Type 2 diabetes mellitus without complication, without long-term current use of insulin E11.9 and Routine medical exam Z00.00 [facility] [place] [address] [facility] [address] [place] [address] 02/22/2024 Tomy Besson Mild intermittent asthma without complication J45.20 [facility] [place] [address] [facility] [address] [place] [address] 06/29/2024 Tomy Besson Mild intermittent asthma without complication J45.20 ; Upper respiratory virus J06.9 ; Recurrent acute serous otitis media of right ear H65.04 and Yeast vaginitis B37.31 [facility] [place] [address] [facility] [address] [place] [address] 11/07/2024 Tomy Besson Hypertension, essential I10 ; Type 2 diabetes mellitus without complication, without long-term current use of insulin E11.9 ; History of vitamin D deficiency Z86.39 ; Mild intermittent asthma without complication J45.20 ; Acute nonintractable headache, unspecified headache type R51.9 and Diplopia H53.2 [facility] [address] [address] 02/23/2024 Tomy Besson Mild intermittent asthma without complication J45.20 [facility] [address] [address] 04/26/2024 Tomy Besson [facility] [place] [address] [place] [address] 05/16/2024 Tomy Besson Mild intermittent asthma without complication J45.20 [facility] [place] [address] [place] [address] 07/01/2024 Della Fregoso [facility] [address] [address] 07/05/2024 Tomy Reid Mild intermittent asthma without complication J45.20 ; Recurrent acute serous otitis media of right ear H65.04 and Yeast vaginitis B37.31 [facility] [place] [address] [place] [address] 07/30/2024 Tomy Reid [facility] [place] [address] [facility] [address] [place] [address] 08/15/2024 Tomy Oconnellson [facility] [place] [address] [place] [address] 11/08/2024 Tomy Reid Assessments Encounter Date Diagnosis [...] Breyna inhaler to substitute. Will send to [facility] pharmacy to make it easier to obtain [...] of right ear (ICD-10 - H65.04) 01/29/2024 GERD without esophagitis (ICD-10 - K21.9) Stable on famotidine, will refill 01/29/2024 Vitamin D deficiency (ICD-10 - E55.9) [...] - Z00.00) Up-to-date with colonoscopy, mammogram and COMBINED RAIL OPERATOR screening. Up-to-date on vaccines. Lifelong non-smoker. Otherwise [...] A1c 04/30/2018 Pulmonary Function Test- Complete 2023 M-Complete Blood Count Auto Diff 025 M-Miscellaneous Test 10/31/2019 M-Comprehensive Metabolic Panel 11/09/19 25 M-Comprehensive Metabolic Panel 03/11/20 21 M-Hemoglobin A1C 03/11/2021 M-Hemoglobin A1C 11/08/2024 M-Lipid Panel 03/11/2021 M-Lipid Panel 11/08/2024 M-Thyroid Panel 11/08/2024 M-Thyroid Stimulating Hormone 03/11/2021 M-Vitamin B12 03/11/2021 M-Vitamin B12 09/26/2022 M-Vitamin B12 01/29/2024 M-Vitamin D 25 Hydroxy 01/29/2024 M-Vitamin D 25 Hydroxy 09/26/2022 M-Vitamin D 25 Hydroxy 03/11/2021 H-TVITD 11/08/2024 H-VITB12 11/08/2024 H-FOL 11/08/2024 THYROID PANEL WITH TSH (7444) 11/07/2024 LIPID PANEL, STANDARD (7600) 11/07/2024 COMPREHENSIVE METABOLIC PANEL (92902) CBC (INCLUDES DIFF/PLT) (6399) 07/21/202 5 HEMOGLOBIN A1c (496) 11/07/2024 VITAMIN B12/FOLATE, SERUM PANEL (7065) 0 11/07/2024 CORTISOL, A.M. (4422) 11/07/2024 VITAMIN D,25-OH,TOTAL,IA (73541) [phone] Insurance Providers Payer Name Payer Address Payer Phone Subscriber Number Group Number Insured Name Patient Relationship to Insured Coverage Start Date Coverage End Date [facility] [address] [place] [address] [id number] Zaynab Holloway Self - patient is [...] Colonoscopy Surgical History Surgery Date(Month/Year) tonsillectomy hysterectomy 2002 cholecystectomy 1999 appendectomy nasal septoplasty 2013 fascial sling for urethra 2018
--- OUTSIDE RECORDS SUMMARY | 2024-11-09 14:09 | XMS_ITS | Clinical Summary ---
Author Organization [facility] Address [address] [place] [address] Care Team Providers Care Band Saw Marker Name Role Phone Lloyd Hill MD Primary [...] INFLUENZA VACCINE 01/18/2025 02/01/2019, , 01/06/2017 Insurance [facility] BLUE CROSS BLUE SHIELD PPO EM BLUE [employer] BLUE [employer] PPO Care Teams Band Saw Marker Relationship Specialty Start Date End Date Lloyd Hill MD [address] [place] [id number] PCP - General Internal Medicine 10/23/21
--- NOTE | 2024-11-09 14:15 | US_ITS ---
Ultrasound Sonograher: PROCEDURE: US TRANSVAGINAL CLINICAL INDICATION: right side pelvic pain COMPARISON: No exams were available for comparison FINDINGS: Transvaginal sonographic images of the pelvis were obtained. UTERUS: The uterus is surgically absent. The vaginal vault is intact. LEFT OVARY: Left ovary is surgically absent. RIGHT OVARY: Right ovary is surgically absent. Both ovaries are surgically absent. There is no fluid in the cul-de-sac. IMPRESSION: 1. The uterus is surgically absent. The vaginal vault is intact. 2. Both ovaries are surgically absent. 3. No fluid in the cul-de-sac. Dictated by: Sean Sanders MD 11/10/2024 13:13 Sean Sanders MD in OV 11/10/2024 13:13
== END 2024-11-09 23:59 | disposition home or self-care (01) ==
LOC: RAD 14:06
PROVIDERS: PCP Internal Medicine Adolescent Medicine; Visit Provider Obstetrics & Gynecology
DX: R10.2 Pelvic and perineal pain (principal); Z90.722 Acquired absence of ovaries, bilateral; Z90.710 Acquired absence of both cervix and uterus
CPT/HCPCS: 76830

== ENCOUNTER 2024-11-10 14:30 | Outpatient (CLI) | payer BC, OTHER, SELFPAY ==
--- OUTSIDE RECORDS SUMMARY | 2024-07-23 17:30 | XMS_ITS ---
Author Organization [facility] PE D [place] Address [address] [place] [address] Care Team Providers Care Oral Surgery Technician Name Role Phone FranklinTomy Primary Care Provider [phone] Migration, Provider Unavailable Unavailable Allergies Allergen (clinical drug ingredient) Drug/Non Drug Allergy documented on EMR Reaction Allergy Type Onset Date Status SULFA (uncoded) rash Allergy Acti ve bisoprolol Bisoprolol Fumarate swelling in ankles Drug Allergy Active bisoprolol / hydrochlorothiazide Bisoprolol-hydro CHLOROthiazide swelling in ankles Drug Allergy Active amlodipine amLODIPine swelling in ankles Drug Allergy Active REASON FOR VISIT [facility] To [facility] Conversion Encounter Medications Medication SIG (Take, Route, Frequency, Duration) Notes Start Date End Date Status Nystatin 350164 UNIT/ML 5 mL orally swish 4 times a day; Duration: 14 days 07/01/2024 Active OZEMPIC 2 MG/1.5 ML (0.25 MG OR 0.5 MG DOSE) DIRECTED SUBCUTANEOUSLY ONCE A WEEK *Please review for potential replacement for e-prescription and drug interaction check* Active Escitalopram Oxalate 20 MG 1 tab(s) orally once a day; Duration: 90 days Active Olmesartan Medoxomil 40 MG 1 tab(s) orally once a day; Duration: 90 days Active Famotidine 40 MG 1 tab(s) orally once a day (at bedtime); Duration: 90 days Active Metoprolol Tartrate 25 MG 1 tab(s) orally 2 times a day Active Fluconazole 150 MG 1 tab(s) orally once ; Duration: 10 days 06/29/2024 Active Fluticasone Propionate 50 MCG/ACT 2 spray(s) in each nostril once a day; Duration: 90 days 06/29/2024 Active Breyna 160 MCG-4.5 MCG/INH 2 INH INHALED 2 TIMES A DAY; Duration: 90 DAYS *Please review and pick correct strength-formulati on from [employer] options. If intended option is not shown, discontinue and re-order from Quick Search* 06/29/2024 Active BUDESONIDE-FORMOTER OL FUMARATE DIHYDRATE 160 MCG-4.5 MCG/INH 2 INH INHALED 2 TIMES A DAY; Duration: 30 DAYS Please dispense spacer for MDI also... thank you! *Please review for potential replacement for e-prescription and drug interaction check* 02/22/2024 Active Encounters Encounter Location Date Provider Diagnosis [facility] [place] [address] [facility] [address] [place] [address] 07/23/2024 Provider Migration Mild intermittent asthma without complication J45.20 ; Recurrent acute serous otitis media of right ear H65.04 and Yeast vaginitis B37.31 Assessments Encounter Date Diagnosis (ICD Code) Assessment Notes Treatment Notes Treatment Clinical Notes Section Notes 07/23/2024 Mild intermittent asthma without complication (ICD-10 - J45.20) 07/23/2024 Recurrent acute serous otitis media of right ear (ICD-10 - H65.04) 07/23/2024 Yeast vaginitis (ICD-10 - B37.31) Plan Of Treatment Medication Medication Name Sig Start Date Stop Date Notes Nystatin 427881 UNIT/ML 5 mL orally swis h 4 times a day; Duration: 14 days 07/01/2024 Fluconazole 150 MG 1 tab(s) orally once; Duration: 10 days 06/29/2024 Fluticasone Propionate 50 MCG/ACT 2 spray(s) in each nostril once a day; Duration: 90 days 06/29/2024 Breyna 160 MCG-4.5 MCG/INH 2 INH INHALED 2 TIMES A DAY; Duration: 90 DAYS 06/29/2024 *Please review and pick correct strength-formulation from [employer] options. If intended option is not shown, discontinue and re-order from Quick Search* Progress Notes * Zaynab HOLLOWAYDOB: 7 (59 yo F)Acc No.[id number]:07/23/2024 Patient: Zaynab HENDRIX Provider: Joe Bethea :1965 A ge:59 Y S ex:Female Date:07/23/2024 Address:[address] [place], [place] [address], [id number] Pcp:Tomy Reid Subjective: * Chief Complaints: * 1 . [facility]pan Conversion Encounter. * Medical History: * Medications: T aking Metoprolol Tartrate 25 MG Tablet 1 tab(s) orally 2 times a day , Taking OZEMPIC 2 MG/1.5 ML (0.25 MG OR 0.5 MG DOSE) SOLUTION DIRECTED SUBCUTANEOUSLY ONCE A WEEK , Notes to Pharmacist: *Please review for potential replacement for e- prescription and drug interaction check*, Taking Olmesartan Medoxomil 40 MG Tablet 1 tab(s) orally once a day , Taking Famotidine 40 MG Tablet 1 tab(s) orally once a day (at bedtime) , Taking Escitalopram Oxalate 20 MG Tablet 1 tab(s) orally once a day , Taking BUDESONIDE-FORMOTEROL FUMARATE DIHYDRATE 160 MCG-4.5 MCG/INH AEROSOL 2 INH INHALED 2 TIMES A DAY , Notes to Pharmacist: Please dispense spacer for MDI also... thank you! *Please review for potential replacement for e-prescription and drug interaction check* * Allergies: S ULFA: rash, amLODIPine: swelling in ankles, Bisoprolol-hydroCHLOROthiazide: swelling in ankles, Bisoprolol Fumarate: swelling in ankles. Objective: * Vitals: Assessment: * Assessment: 1. M ild intermittent asthma without complication - J45.20 2 . R ecurrent acute serous otitis media of right ear - H65.04 3 . Y east vaginitis - B37.31? Plan: * Treatment: 2. R ecurrent acute serous otitis media of right ear Refill Fluticasone Propionate Suspension, 50 MCG/ACT, 2 spray(s), in each nostril, once a day, 90 days, 3, Refills 1. 3. Y east vaginitis Refill Fluconazole Tablet, 150 MG, 1 tab(s), orally, once, 10 days, 10, Refills 1. 4. O thers Start Nystatin Suspension, 987822 UNIT/ML, 5 mL, orally, swish 4 times a day, 14 days, 280, Refills 0. * * Electronic signature of Prov ider Migration on 11/10/2024 at 02:37 PM EDT Sign off status: Pending * Provider: Joe crespo Migration Date: 0 07/23/2024 Generated for Nelida quinonez/Jaki/Denitting on: 0 11/10/2024 02:37 PM EDT
--- OUTSIDE RECORDS SUMMARY | 2024-11-07 10:00 | XMS_ITS ---
Author Organization [facility] PE D KAYLIE Address [address] [place] [address] Care Team Providers Care Machine Sander Name Role Phone Tomy Reid Primary Care Provider Allergies Allergen (clinical drug ingredient) Drug/Non Drug [...] (at bedtime); Duration: 90 days Active Nystatin 004960 UNIT/ML 5 mL orally swish 4 times a day; Duration: 14 days 07/01/2024 Active Breyna 160 MCG-4.5 MCG/INH 2 INH INHALED 2 TIMES A DAY; Duration: 90 DAYS *Please review and pick correct strength-formulati on from [employer] options. If intended option is not shown, [...] 11/07/2024 Encounters Encounter Location Date Provider Diagnosis [facility] K[facility] [address] [place] [address] 11/07/2024 Tomy Franklin Hypertension, essent ial I10 [...] PANEL, STANDARD (7600) 11/07/2024 COMPREHENSIVE METABOLIC PANEL (04193) CBC (INCLUDES DIFF/PLT) (6399) HEMOGLOBIN A1c (496) 11/07/2024 VITAMIN B12/FOLATE, SERUM PANEL (7065) 0 11/07/2024 CORTISOL, A.M. (4212) 11/07/2024 VITAMIN D,25-OH,TOTAL,IA (80225) 025 Next Appt Details Follow Up: prn, Reason: Progress Notes * Zaynab HOLLOWAY JDOB: [birth year] (59 yo F)Acc No.[id number]:11/07/2024 Progress Notes Patient: Shruti HENDRIXsundar Ayo Provider: Radha Reid MD :1965 A ge:59 Y S ex:Female Date:11/07/2024 Address:[address] [place], [id number] Subjective: * Chief Complaints: * 1 . [...] Father: . P aternal Grand Mother: , [place]. M aternal Grand Father: . M aternal Grand Mother: . P aternal uncle: alive, COPD. P aternal aunt: . M aternal uncle: alive. M aternal aunt: alive, 1 maternal aunt [place], 1 maternal aunt breast cancer,aneurysm. S iblings: alive, diabetes, type II sister. C hildren: alive. 1 sister(s) - healthy. 2 daughter(s) [...] e-prescription and drug interaction check*, Taking Nystatin 505262 UNIT/ML Suspension 5 mL orally swish 4 times a day , Taking Breyna 160 MCG-4.5 MCG/INH AEROSOL 2 INH INHALED 2 TIMES A DAY , Notes to Pharmacist: *Please review and pick correct strength-formulation from [employer] options. If intended option is not shown, [...] STANDARD (7600) L AB: COMPREHENSIVE METABOLIC PANEL (31826) L AB: CBC (INCLUDES DIFF/PLT) (6399) L AB: HEMOGLOBIN A1c (496) L AB: VITAMIN B12/FOLATE, SERUM PANEL (7065) L AB: CORTISOL, A.M. (4212) L AB: VITAMIN D,25-OH,TOTAL,IA (78006) Notes: Her T2D is well managed with Ozempic. No acute concerns at this time. 3. H istory of vitamin D deficiency L AB: THYROID PANEL WITH TSH (7444) L AB: LIPID PANEL, STANDARD (7600) L AB: COMPREHENSIVE METABOLIC PANEL (03643) L AB: CBC (INCLUDES DIFF/PLT) (6399) L AB: HEMOGLOBIN A1c (496) L AB: VITAMIN B12/FOLATE, SERUM PANEL (7065) L AB: CORTISOL, A.M. (4212) L AB: VITAMIN D,25-OH,TOTAL,IA (75073) Notes: No concerns at this time. 4. M ild intermittent asthma without complication Notes: Her asthma is well managed with Breyna. No concerns at this time. 5. A cute nonintractable headache, unspecified headache type L AB: THYROID PANEL WITH TSH (7444) L AB: LIPID PANEL, STANDARD (7600) L AB: COMPREHENSIVE METABOLIC PANEL (88882) L AB: CBC (INCLUDES DIFF/PLT) (6399) L AB: HEMOGLOBIN A1c (496) L AB: VITAMIN B12/FOLATE, SERUM PANEL (7065) L AB: CORTISOL, A.M. (4212) L AB: VITAMIN D,25-OH,TOTAL,IA (55077) I maging: MRI : Head, Without Contrast * Notes: We discussed getting an MRI of her head to assess the cause of the headaches. We also discussed getting an ESR and cortisol levels on her tomorrow morning.??6.?Diplopia?LAB: THYROID PANEL WITH TSH (7444) ?LAB: LIPID PANEL, STANDARD (7600) ?LAB: COMPREHENSIVE METABOLIC PANEL (52467) ?LAB: CBC (INCLUDES DIFF/PLT) (6399) ?LAB: HEMOGLOBIN A1c (496) ?LAB: VITAMIN B12/FOLATE, SERUM PANEL (7065) ?LAB: CORTISOL, A.M. (4212) ?LAB: VITAMIN D,25-OH,TOTAL,IA (42840) ?Imaging: MRI : Head, Without Contrast* Pattie Dash 11/07/2024 02: 57:57 PM EDT > Precert not required for CPT 66005 * Notes: We discussed getting an MRI of her head to assess the cause of the diplopia.?? * Follow Up: p rn * * Sign off status: Completed true * Provider: Radha Reid MD Date: 11/07/2024 Generated for Scoobyi ng/Fahermelindag/eTransmitting on: 11/10/2024 02:36 PM EDT History and Physical Notes * HPI [...]
--- OUTSIDE RECORDS SUMMARY | 2024-11-08 04:30 | XMS_ITS ---
Author Organization [facility] Address [address] [place] [address] Care Team Providers Care Director Of Cardiology Name Role Phone Tomy Reid Primary Care Provider REASON FOR VISIT Lab Encounters Encounter Location Date Provider Diagnosis [facility] [address] [place] [address] 11/08/2024 Tomy Reid Plan Of Treatment No Information Progress Notes * Zaynab HOLLOWAYDOB: [birth year] (59 yo F)Acc No.[id number]:11/08/2024 LABS Patient: Zaynab HENDRIX Provider: Radha Reid MD :1965 A ge:59 Y S ex:Female Date:11/08/2024 Address:[address], [id number] Subjective: * Chief Complaints: * 1 . Lab. * Medical History: Objective: * Vitals: Assessment: Plan: * Treatment: * * Electronic signature of Serge Reid MD FAAP on 11/10/2024 at 02:37 PM EDT Sign off status: Pending * Provider: Radha Reid MD Date: 11/08/2024 Generated for Printi ng/Faxing/eTransmitting on: 11/10/2024 02:37 PM EDT
--- NOTE | 2024-11-10 14:32 | MR_ITS ---
FINAL REPORT TECHNIQUE: Multiplanar MR without contrast CLINICAL HISTORY: ACUTE NONINTRACTABLE HEADACHE/DIPLOPIA LEFT SIDED, TOP OF HEAD PAIN PAIN IN SINUS AREA FUZZY VISION LEFT EYE FINDINGS: Diffusion sequences show no signal abnormality to indicate acute infarct. No mass, hemorrhage or edema is seen. Ventricles are normal. Major vascular flow voids are intact. The pituitary gland appears normal in size. The optic chiasm is unremarkable. IMPRESSION: Unremarkable MR of the brain without contrast Reviewed, Interpreted and Dictated by Eduardo Allen MD Transcribed by Crystal Anderson Authenticated and . [facility]
--- OUTSIDE RECORDS SUMMARY | 2024-11-10 14:37 | XMS_ITS | Patient Health Record ---
Author Organization [facility] Address [address] [place] [address] Care Team Providers Care Supervisor Stave Cutting Name Role Phone Heidi Faulkner Unavailable [phone] Allergies Allergen (clinical drug ingredient) Drug/Non Drug [...] Problem Status W/U Status Risk Notes Problem Adult health examination (045615438) Adult general medical exam (Z00.00) 010 Active confirmed ANNUAL EXAM Problem Candidal vulvovaginitis (03278872) Anogenital candidiasis in female (B37.3) 010 Active confirmed CANDIDIASIS OF VULVA AND VAGINA Problem Candidal vulvovaginitis (81633688) Anogenital candidiasis in female (B37.3) 010 Active confirmed CANDIDIASIS OF VULVA AND VAGINA Plan Of Treatment No Information Medical (General) [...]
--- OUTSIDE RECORDS SUMMARY | 2024-11-10 14:37 | XMS_ITS | Encounter Summary ---
Author Organization [facility] Address [address] [place] [address] Care Team Providers Care Automobile Insurance Claim Examiner Name Role Phone Tomy Reid MD Primary Care Provider [phone] Encounter Details Date Type Department Care Team ([facility] st Contact Info) Description 09/06/2020 Abstract [facility] [address] [facility], [address] [place] [address] Sonja Shields PA [address] [place] [address] Social History Tobacco Use Types [...] on filedocumented in this encounter Care Teams Automobile Insurance Claim Examiner Relationship Specialty Start Date End Date Tomy Reid MD [address] [place] [address] PCP - General 08/31/20 documented as of this encounter
--- OUTSIDE RECORDS SUMMARY | 2024-11-10 14:37 | XMS_ITS | Clinical Summary ---
Author Organization [facility] Address [address] [place] [address] Care Team Providers Care Manager Engagement Name Role Phone Lloyd Hill MD Primary [...] INFLUENZA VACCINE 01/18/2025 02/01/2019, , 01/06/2017 Insurance [facility] BLUE CROSS BLUE SHIELD PPO EM BLUE [employer] BLUE [employer] PPO Care Teams Manager Engagement Relationship Specialty Start Date End Date Lloyd Hill MD [address] [place] [id number] PCP - General Internal Medicine 10/23/21
--- OUTSIDE RECORDS SUMMARY | 2024-11-10 14:38 | XMS_ITS | Clinical Summary ---
Author Organization [facility] Address [address] [place] [address] Care Team Providers Care Costume Specialist Name Role Phone Tomy Reid MD Primary Care Provider [phone] Allergies Active Allergy Reactions Criticality Noted Date [...] Td Vaccines (1 - Tdap) 03/11/2019 03/10/2019 [id number] Vaccine (2 - season) 2023 12/20/2020 [facility]-Influenza [...] this topic Insurance JONATHAN JONATHAN Care Teams Costume Specialist Relationship Specialty Start Date End Date Tomy Reid MD [address] [place] [address] PCP - General 08/31/20
--- OUTSIDE RECORDS SUMMARY | 2024-11-10 14:38 | XMS_ITS | Patient Health Record ---
Author Organization [facility] Address [address] [place] [address] Care Team Providers Care Edging Machine Feeder Name Role Phone AnishTomy bone Primary Care Provider [phone] Della Fregoso Unavailable [phone] Migration, Provider Unavailable Unavailable Allergies Allergen (clinical drug ingredient) Drug/Non Drug Allergy documented on EMR Reaction Allergy Type Onset Date Status SULFA (uncoded) rash Allergy Acti ve bisoprolol Bisoprolol Fumarate swelling in ankles Drug Allergy Active bisoprolol / hydrochlorothiazide Bisoprolol-hydro CHLOROthiazide swelling in ankles Drug Allergy Active amlodipine amLODIPine swelling in ankles Drug Allergy Active Results Component Value Reference Range Notes M-Complete Blood Count Auto Diff Reviewed date:11/09/2024 04:47:48 PM Interpretation: Performing Lab: Notes/Report: WBC 7.5 4.8-10.8 [...] 0 IG% 0.4 NRBC# 0 IG# 0.03 M-Comprehensive Metabolic Pa kindra Reviewed date:11/09/2024 04:47:48 PM Interpretation: Performing Lab: Notes/Report: NA 139 136-145 [...] AGRATIO 1.9 1.1-1.8 ALP 73 38-126 U/L M-Hemoglobin A1C Reviewed date:11/09/2024 04:47:48 PM Interpretation: Performing Lab: Notes/Report: HGBA1C 4.9 4.0-6.0 % < 6% Non-Diabetic Level < 7% Controlled Diabetic Level > 8% Poorly Controlled Diabetic Level M-Lipid Panel Reviewed date:11/09/2024 04:47:48 PM Interpretation: Performing Lab: Notes/Report: Patient Fasting? Y TRIG 68 30-150 mg/dl CHOL 132 140-200 mg/dl DLDL 49.49 100-129 mg/dL VLDL 14 0-40 mg/dL HDL 54 40-60 mg/dl CHLHDL 2.4 1-3.5 M-Thyroid Panel Reviewed date:11/09/2024 04:47:48 PM Interpretation: Performing Lab: Notes/Report: FTI 2.8 5.93-13.13 ug/dL T4 8.6 5.53-11.0 ug/dl T3U 33 23.5-40.5 % TSH 1.15 0.465-4.68 uIU/mL H-TVITD Reviewed date:11/09/2024 04:47:48 PM Interpretation: Performing Lab: Notes/Report: TVITD 72.4 30-100 ng/mL Deficient <20 ng/mL Insufficient 20-30 ng/mL Sufficient 30-100 ng/mL Potential Toxicity >100 ng/mL H-VITB12 Reviewed date:11/09/2024 04:47:48 PM Interpretation: Performing Lab: Notes/Report: VITB12 > 1000 239-931 pg/mL H-FOL Reviewed date:11/09/2024 04:47:48 PM Interpretation: Performing Lab: Notes/Report: FOL 5.98 Normal Adult: 2.76->20 ng/mL Folate Deficent: 1.04-2.79ng/mL H-CORTA Reviewed date:11/09/2024 06:04:41 PM Interpretation: Performing Lab: Notes/Report: CORTA 12.4 6.2-19.4 ug/dL Performed at: [address] [id number] Director Of Front Office: Juan Luis Melo PhD, Phone: [phone] X ray : Chest Reviewed date:01/30/2024 11:00:33 [...] Performing Lab: Notes/Report: TSH 1.01 0.465-4.68 uIU/mL H-TVITD Reviewed date:01/30/2024 08:54:45 AM Interpretation: Performing Lab: Notes/Report: TVITD 84.5 30-100 ng/mL Deficient <20 ng/mL Insufficient 20-30 ng/mL Sufficient 30-100 ng/mL Potential Toxicity >100 ng/mL H-VITB12 Reviewed date:01/30/2024 08:54:45 AM Interpretation: Performing Lab: Notes/Report: VITB12 > 1000 239-931 pg/mL Medications Medication SIG (Take, Route, Frequency, Duration) [...] ; Duration: 10 days 06/29/2024 Active Nystatin 110425 UNIT/ML 5 mL orally swish 4 times a day; Duration: 14 days 07/01/2024 Active Breyna 160 MCG-4.5 MCG/INH 2 INH INHALED 2 TIMES A DAY; Duration: 90 DAYS *Please review and pick correct strength-formulati on from Ventive options. If intended option is not shown, [...] Status Risk Notes Problem Generalized anxiety disorder (31584250) Generalized anxiety disorder (F41.1) Active confirmed Problem Irritable bowel syndrome with diarrhea (752735029) Irritable bowel syndrome with diarrhea (K58.0) Active confirmed Problem Mixed anxiety and depressive disorder (548617661) Depression with anxiety (F41.8) Active confirmed Problem Vitamin D deficiency (01995348) Vitamin D deficiency (E55.9) Active confirmed Problem Gastroesophageal reflux disease (225036923) GERD without esophagitis (K21.9) Active confirmed Problem Essential hypertension (32030198) Hypertension, essential (I10) Active confirmed Problem Irritable bowel syndrome characterized by constipation (882589027) Irritable bowel syndrome with constipation (K58.9) Active confirmed Problem Pain in limb (78703897) Foot pain, right (M79.671) Active confirmed Problem Mild intermittent asthma (841335068) Mild intermittent asthma without complication (J45.20) Active confirmed Problem Primary osteoarthritis (368720810) Primary osteoarthritis involving multiple joints (M15.0) Active confirmed Problem Migraine without aura, not refractory (292150442) Migraine without aura and without status migrainosus, not intractable (G43.009) Active confirmed Problem History of nutritional deficiency (13177399064404) History of vitamin D deficiency (Z86.39) Active confirmed Problem Type II diabetes mellitus without complication (975928007) Type 2 diabetes mellitus without complication, without long-term current use of insulin (E11.9) Active confirmed Problem Sjogren's syndrome (69040412) Sjogren's syndrome (M35.00) Active confirmed Problem Sensorineural hearing loss (43364328) Unilateral sensorineural hearing loss (H90.5) Active confirmed Problem Dribbling of urine (30414608) Urinary incontinence, post-void dribbling (N39.43) Active confirmed Vital Signs Heart Rate 72 /min 11/07/2024 Temperature 97.7 degrees Fahrenheit 11/07/2024 Blood pressure diastolic 84 mm Hg 11/07/2024 Oximetry 99 01/29/2024 Height 5 ft 6 in in 11/07/2024 Blood pressure systolic 114 mm Hg 11/07/2024 Weight 150 lbs 11/07/2024 BMI 24.21 kg/m2 11/07/2024 Encounters Encounter Location Date Provider Diagnosis [facility] [address] [place] [address] 07/23/2024 Provider Migration Mild intermittent asthma without complication J45.20 ; Recurrent acute serous otitis media of right ear H65.04 and Yeast vaginitis B37.31 [facility] [address] [place] [address] 01/29/2024 Tomy Besson Breathlessness R06.8 1 ; Chest pain, unspecified type R07.9 ; GERD without esophagitis K21.9 ; Vitamin D deficiency E55.9 ; Type 2 diabetes mellitus without complication, without long-term current use of insulin E11.9 and Routine medical exam Z00.00 [facility] [address] [place] [address] 02/22/2024 Tomy Besson Mild intermittent asthma without complication J45.20 [facility] [address] [place] [address] 06/29/2024 Tomy Besson Mild intermittent asthma without complication J45.20 ; Upper respiratory virus J06.9 ; Recurrent acute serous otitis media of right ear H65.04 and Yeast vaginitis B37.31 [facility] [address] [place], [place] [address] 11/07/2024 Tomy Besson Hypertension, essential I10 ; Type 2 diabetes mellitus without complication, without long-term current use of insulin E11.9 ; History of vitamin D deficiency Z86.39 ; Mild intermittent asthma without complication J45.20 ; Acute nonintractable headache, unspecified headache type R51.9 and Diplopia H53.2 [facility] [address] [address] 02/23/2024 Tomy Besson Mild intermittent asthma without complication J45.20 [facility] [address] [address] [place] [address] 04/26/2024 Tomy Besson [facility] [address] [place], [place] [address] 05/16/2024 Tomy Besson Mild intermittent asthma without complication J45.20 [facility] [address] [facility] [address] [place], [place] [address] 07/01/2024 Della Ildefonso [facility] [address] [place] [address] 07/05/2024 Tomy Besson Mild intermittent asthma without complication J45.20 ; Recurrent acute serous otitis media of right ear H65.04 and Yeast vaginitis B37.31 [facility] [address] [place] [address] 07/30/2024 Tomy Besson [facility] [place] [address] [place] [address] 08/15/2024 Tomy Besson [facility] [address] [facility] [address] [place], [place] [address] 11/08/2024 Tomy Besson Assessments Encounter Date Diagnosis (ICD Code) Assessment [...] Breyna inhaler to substitute. Will send to [facility] pharmacy to make it easier to obtain [...] - Z00.00) Up-to-date with colonoscopy, mammogram and CLIENT RESOURCE SPECIALIST screening. Up-to-date on vaccines. Lifelong non-smoker. Otherwise [...] PANEL, STANDARD (7600) 11/07/2024 COMPREHENSIVE METABOLIC PANEL (61210) CBC (INCLUDES DIFF/PLT) (6399) HEMOGLOBIN A1c (496) 11/07/2024 VITAMIN B12/FOLATE, SERUM PANEL (7065) 0 11/07/2024 CORTISOL, A.M. (4212) 11/07/2024 VITAMIN D,25-OH,TOTAL,IA (85669) 025 Insurance Providers Payer Name Payer Address Payer Phone Subscriber Number Group Number Insured Name Patient Relationship to Insured Coverage Start Date Coverage End Date [facility] [address] [place] [address] [id number] Zaynab Holloway Self - patient is [...]
== END 2024-11-10 23:59 | disposition home or self-care (01) ==
LOC: RAD 14:30
PROVIDERS: PCP Internal Medicine Adolescent Medicine; Visit Provider Internal Medicine Adolescent Medicine
DX: H53.2 Diplopia (principal); R51.9 Headache, unspecified
CPT/HCPCS: 70551

== ENCOUNTER 2025-01-10 10:40 | Outpatient (CLI) | payer BC, OTHER, SELFPAY ==
--- OUTSIDE RECORDS SUMMARY | 2024-07-23 17:30 | XMS_ITS ---
Author Organization [facility] PE D KAYL[place] Address [address] [place] [address] Care Team Providers Care Health Safety And Environment Manager Name Role Phone FranklinTomy Primary Care Provider Migration, Provider Unavailable Unavailable Allergies Allergen (clinical drug ingredient) Drug/Non Drug Allergy documented on EMR Reaction Allergy Type Onset Date Status SULFA (uncoded) rash Allergy Acti ve bisoprolol Bisoprolol Fumarate swelling in ankles Drug Allergy Active bisoprolol / hydrochlorothiazide Bisoprolol-hydro CHLOROthiazide swelling in ankles Drug Allergy Active amlodipine amLODIPine swelling in ankles Drug Allergy Active REASON FOR VISIT [facility] To [facility] Conversion Encounter Medications Medication SIG (Take, Route, Frequency, Duration) Notes Start Date End Date Status Nystatin 459693 UNIT/ML 5 mL orally swish 4 times [...] review and pick correct strength-formulati on from [employer] options. If intended option is not shown, discontinue and re-order from Quick Search* 06/29/2024 Active BUDESONIDE-FORMOTER OL FUMARATE DIHYDRATE 160 MCG-4.5 MCG/INH 2 INH INHALED 2 TIMES A DAY; Duration: 30 DAYS Please dispense spacer for MDI also... thank you! *Please review for potential replacement for e-prescription and drug interaction check* 02/22/2024 Active Encounters Encounter Location Date Provider Diagnosis [facility] [place] [address] [facility] [address] [place] [address] 07/23/2024 Provider Migration Mild intermittent asthma without [...] Sig Start Date Stop Date Notes Nystatin 235326 UNIT/ML 5 mL orally swis h 4 times a day; Duration: 14 days 07/01/2024 Fluconazole 150 MG 1 tab(s) orally once; Duration: 10 days 06/29/2024 Fluticasone Propionate 50 MCG/ACT 2 spray(s) in each nostril once a day; Duration: 90 days 06/29/2024 Breyna 160 MCG-4.5 MCG/INH 2 INH INHALED 2 TIMES A DAY; Duration: 90 DAYS 06/29/2024 *Please review and pick correct strength-formulation from [employer] options. If intended option is not shown, discontinue and re-order from Quick Search* Progress Notes * Zaynab HOLLOWAYDOB: 7 (59 yo F)Acc No.[id number]:07/23/2024 Patient: Zaynab HENDRIX Provider: Joe Bethea :1965 A ge:59 Y S ex:Female Date:07/23/2024 Address:[address] [place], [place] [address], [id number] Pcp:Tomy Reid Subjective: * Chief Complaints: * [...] 1. 4. O thers Start Nystatin Suspension, 115772 UNIT/ML, 5 mL, orally, swish 4 times a day, 14 days, 280, Refills 0. * * Electronic signature of Prov ider Migration on 01/11/2025 at 09:31 AM EDT Sign off status: Pending * Provider: Joe crespo Migration Date: 0 07/23/2024 Generated for Nelida quinonez/Jaki/Denitting on: 0 01/11/2025 09:31 AM EDT
--- OUTSIDE RECORDS SUMMARY | 2024-11-08 04:30 | XMS_ITS ---
Author Organization [facility] Address [address] [place] [address] Care Team Providers Care Cook Pickled Meat Name Role Phone Tomy Reid Primary Care Provider [phone] REASON FOR VISIT Lab Encounters Encounter Location Date Provider Diagnosis [facility] [address] [place] [address] 11/08/2024 Tomy Reid Plan Of Treatment No Information Progress Notes * Zaynab HOLLOWAYDOB: 7 (59 yo F)Acc No.[id number]:11/08/2024 LABS Patient: Zaynab HENDRIX Provider: Radha Reid MD :1965 A ge:59 Y S ex:Female Date:11/08/2024 Address:[address], [id number] Subjective: * Chief Complaints: * 1 . Lab. * Medical History: Objective: * Vitals: Assessment: Plan: * Treatment: * * Electronic signature of Serge Reid MD FAAP on 01/11/2025 at 09:31 AM EDT Sign off status: Pending * Provider: Radha Reid MD Date: 0 11/08/2024 Generated for Printi ng/Faxing/eTransmitting on: 0 01/11/2025 09:31 AM EDT
--- OUTSIDE RECORDS SUMMARY | 2025-01-11 09:31 | XMS_ITS | Patient Health Record ---
Author Organization [facility] Address [address] [place] [address] Care Team Providers Care Patent Leather Sorter Name Role Phone Heidi Faulkner Unavailable [phone] Allergies Allergen (clinical drug ingredient) Drug/Non Drug [...] W/U Status Risk Notes Problem Candidal vulvovaginitis (54585677) Anogenital candidiasis in female (B37.3) 010 Active confirmed CANDIDIASIS OF VULVA AND VAGINA Problem Candidal vulvovaginitis (47768284) Anogenital candidiasis in female (B37.3) 010 Active confirmed CANDIDIASIS OF VULVA AND VAGINA Problem Adult health examination (315864601) Adult general medical exam (Z00.00) 010 Active [...]
--- OUTSIDE RECORDS SUMMARY | 2025-01-11 09:31 | XMS_ITS | Encounter Summary ---
Author Organization [facility] Address [address] [place] [address] Care Team Providers Care Hr Manager Name Role Phone Tomy Reid MD Primary Care Provider [phone] Encounter Details Date Type Department Care Team ([facility] st Contact Info) Description 09/06/2020 Abstract [facility] [address], [address] [place] [address] Sonja Shields PA [address] [place] [address] Social History Tobacco Use Types [...] on filedocumented in this encounter Care Teams Hr Manager Relationship Specialty Start Date End Date Tomy Reid MD [address] [place] [address] PCP - General 08/31/20 documented as of this encounter
--- OUTSIDE RECORDS SUMMARY | 2025-01-11 09:32 | XMS_ITS | Clinical Summary ---
Author Organization [facility] Address [address] [place] [address] Care Team Providers Care Microbiology Manager Name Role Phone Tomy Reid MD Primary Care Provider [phone] Allergies Active Allergy Reactions Criticality Noted Date [...] Breast cyst 08/05/2021 Dribbling of urine 07/22/2021 Generalized anxiety disorder 04/23/2021 Irritable bowel syndrome with constipation 04/23 Irritable bowel syndrome with diarrhea 2 Migraine without aura, not refractory 04/23/2021 Pain in limb 04/23/2021 Sensorineural hearing loss 04/23/2021 Primary osteoarthritis 04/23/2021 Sjogren's syndrome 04/23/2021 Vitamin D deficiency 04/23/2021 Disorder of breast implant 09/04/2020 Hypertension 08/23/2020 Gastroesophageal reflux disease 03/10/2019 Urinary incontinence 03/10/2019 Essential hypertension 03/10/2019 Type 2 diabetes mellitus without complication 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 03/11/2016 Disorder associated with type 2 diabetes mellitu s 01/09/2016 Obesity 01/09/2016 Bilateral tinnitus 12/04/2015 Ingrowing nail 11/29/2015 Hyperglycemia 11/05/2015 Prediabetes 11/05/2015 Acquired hallux rigidus 08/02/2015 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 Chronic tension-type headache 02/26/2015 Resolved Problems Problem Noted Date Diagnosed Date Resolved Date PONV (postoperative nausea and vomiting) 04/26/2021 01/08/2025 Edema of lower extremity 10/03/2019 Presbyopia 02/01/2019 01/08/2025 Pain in right foot 08/02/2015 Immunizations Immunization Administration Dates Next Due Mumps [...] Date Last Done Comments [facility]-Depression Screening 1967 [facility]-/Child/Adol SDOH Screenings 1965 [facility]- SDOH Screenings 1985 [...] Td Vaccines (1 - Tdap) 03/11/2019 03/10/2019 [id number] Vaccine (2 - season) 2024 12/20/2020 [facility]-Influenza Vaccine (#1) 12/19/202402/01, 01/11/2018, 01/06/2017, [...] age to complete this topic Insurance JONATHAN ANTHEM Care Teams Microbiology Manager Relationship Specialty Start Date End Date Tomy Reid MD [address] [place] [address] PCP - General 08/31/20
--- OUTSIDE RECORDS SUMMARY | 2025-01-11 09:32 | XMS_ITS | Patient Health Record ---
Author Organization [facility] Address [address] [place] [address] Care Team Providers Care Checkering Machine Operator Name Role Phone AnishTomy bone Primary Care Provider Della Fregoso Unavailable [phone] Migration, Provider Unavailable Unavailable Allergies Allergen (clinical drug ingredient) Drug/Non Drug Allergy documented on EMR Reaction Allergy Type Onset Date Status SULFA (uncoded) rash Allergy Acti ve bisoprolol Bisoprolol Fumarate swelling in ankles Drug Allergy Active bisoprolol / hydrochlorothiazide Bisoprolol-hydro CHLOROthiazide swelling in ankles Drug Allergy Active amlodipine amLODIPine swelling in ankles Drug Allergy Active Results Component Value Reference Range Notes X ray : Chest Reviewed date:01/30/2024 11:00:33 AM Interpretation: Performing Lab: Notes/Report: H-CORTA Reviewed date:11/09/2024 06:04:41 PM Interpretation: Performing Lab: Notes/Report: CORTA 12.4 6.2-19.4 ug/dL Performed at: [facility] [id number] Clinical Safety Specialist: Juan Luis Melo PhD, Phone: [phone] MRI : Head, Without Contrast Reviewed date:11/16/2024 10:29:58 AM Interpretation: Performing Lab: Notes/Report: M-Complete Blood Count Auto Diff Reviewed date:11/09/2024 [...] Normal Adult: 2.76->20 ng/mL Folate Deficent: 1.04-2.79ng/mL M-Complete Blood Count Auto Diff Reviewed date:01/30/2024 [...] SUBCUTANEOUSLY ONCE A WEEK; Duration: 84 Active Fluticasone Propionate 50 MCG/ACT 2 spray(s) in each nostril once a day; Duration: 90 days Active Olmesartan Medoxomil 40 MG 1 tab(s) orally once a day; Duration: 90 days Active Escitalopram Oxalate 20 MG TAKE 1 TABLET DAILY; Duration: 90 Active Fluconazole 150 MG 1 tab(s) orally once ; Duration: 10 days 06/29/2024 Active Nystatin 224119 UNIT/ML 5 mL orally swish 4 times a day; Duration: 14 days 07/01/2024 Active Breyna 160 MCG-4.5 MCG/INH 2 INH INHALED 2 TIMES A DAY; Duration: 90 DAYS *Please review and pick correct strength-formulati on from Speaktoitspan options. If intended option is not shown, [...] Status Risk Notes Problem Generalized anxiety disorder (19833197) Generalized anxiety disorder (F41.1) Active confirmed Problem Irritable bowel syndrome with diarrhea (718576706) Irritable bowel syndrome with diarrhea (K58.0) Active confirmed Problem Mixed anxiety and depressive disorder (872839817) Depression with anxiety (F41.8) Active confirmed Problem Vitamin D deficiency (94439404) Vitamin D deficiency (E55.9) Active confirmed Problem Gastroesophageal reflux disease (169862561) GERD without esophagitis (K21.9) Active confirmed Problem Essential hypertension (73751134) Hypertension, essential (I10) Active confirmed Problem Irritable bowel syndrome characterized by constipation (508262934) Irritable bowel syndrome with constipation (K58.9) Active confirmed Problem Pain in limb (08092978) Foot pain, right (M79.671) Active confirmed Problem Mild intermittent asthma (101140738) Mild intermittent asthma without complication (J45.20) Active confirmed Problem Primary osteoarthritis (309985495) Primary osteoarthritis involving multiple joints (M15.0) Active confirmed Problem Migraine without aura, not refractory (769205405) Migraine without aura and without status migrainosus, not intractable (G43.009) Active confirmed Problem History of nutritional deficiency (28097929809955) History of vitamin D deficiency (Z86.39) Active confirmed Problem Type II diabetes mellitus without complication (563226577) Type 2 diabetes mellitus without complication, without long-term current use of insulin (E11.9) Active confirmed Problem Sjogren's syndrome (49013258) Sjogren's syndrome (M35.00) Active confirmed Problem Sensorineural hearing loss (16772571) Unilateral sensorineural hearing loss (H90.5) Active confirmed Problem Dribbling of urine (33270801) Urinary incontinence, post-void dribbling (N39.43) Active confirmed Vital Signs Heart Rate 72 /min 11/07/2024 Temperature 97.7 degrees Fahrenheit 11/07/2024 Blood pressure diastolic 84 mm Hg 11/07/2024 Oximetry 99 01/29/2024 Height 5 ft 6 in in 11/07/2024 Blood pressure systolic 114 mm Hg 11/07/2024 Weight 150 lbs 11/07/2024 BMI 24.21 kg/m2 11/07/2024 Encounters Encounter Location Date Provider Diagnosis [facility] [address] [place] [address] 07/23/2024 Provider Migration Mild intermittent asthma without complication J45.20 ; Recurrent acute serous otitis media of right ear H65.04 and Yeast vaginitis B37.31 [facility] [address] [place] [address] 01/29/2024 Tomy Besson Breathlessness R06.8 1 ; Chest pain, unspecified type R07.9 ; GERD without esophagitis K21.9 ; Vitamin D deficiency E55.9 ; Type 2 diabetes mellitus without complication, without long-term current use of insulin E11.9 and Routine medical exam Z00.00 [facility] [place] [address] [place] [address] 02/22/2024 Tomy Besson Mild intermittent asthma without complication J45.20 [facility] [address] [place] [address] 06/29/2024 Tomy Besson Mild intermittent asthma without complication J45.20 ; Upper respiratory virus J06.9 ; Recurrent acute serous otitis media of right ear H65.04 and Yeast vaginitis B37.31 [facility] [address] [place] [address] 11/07/2024 Tomy Besson Hypertension, essential I10 ; Type 2 diabetes mellitus without complication, without long-term current use of insulin E11.9 ; History of vitamin D deficiency Z86.39 ; Mild intermittent asthma without complication J45.20 ; Acute nonintractable headache, unspecified headache type R51.9 and Diplopia H53.2 [facility] [address] [place] [address] 02/23/2024 Tomy Besson Mild intermittent asthma without complication J45.20 [facility] [address] [place] [address] 04/26/2024 Tomy Besson [facility] [address] [facility] [address] [place], [place] [address] 05/16/2024 Tomy Besson Mild intermittent asthma without complication J45.20 [facility] [address] [facility] [address] [place] [address] 07/01/2024 Della Ildefonso [facility] [place] [address] [place] [address] 07/05/2024 Tomy Besson Mild intermittent asthma without complication J45.20 ; Recurrent acute serous otitis media of right ear H65.04 and Yeast vaginitis B37.31 [facility] [address] [place], [place] [address] 07/30/2024 Tomy Besson [facility] [address] [place] [address] 08/15/2024 Tomy Besson [facility] [address] [place], [place] [address] 11/08/2024 Tomy Besson Assessments Encounter Date Diagnosis [...] Breyna inhaler to substitute. Will send to [facility] pharmacy to make it easier to [...] of right ear (ICD-10 - H65.04) 07/05/2024 Yeast vaginitis (ICD-10 - B37.31) 06/29/2024 Yeast vaginitis (ICD-10 - B37.31) 01/29/2024 Vitamin D deficiency (ICD-10 - E55.9) Check labs as noted. I will review personally 07/23/2024 Yeast vaginitis (ICD-10 - B37.31) 11/07/2024 [...] - Z00.00) Up-to-date with colonoscopy, mammogram and SHEETROCK APPLICATOR screening. Up-to-date on vaccines. Lifelong non-smoker. Otherwise healthcare maintenance up-to-date, good health Its, normal BMI. Did encourage exercise 11/07/2024 Diplopia (ICD-10 - H53.2) We discussed getting an MRI of her head to assess the cause of the diplopia. Plan Of Treatment Pending Test Test Name Order Date IVP 09/15/2006 EKG : In House 12/26/2010 H-VITAMIN B12 05/19/2016 H-CMP 05/19/2016 H-MAGNESIUM 05/19/2016 [...] PANEL, STANDARD (7600) 11/07/2024 COMPREHENSIVE METABOLIC PANEL (73966) CBC (INCLUDES DIFF/PLT) (6399) HEMOGLOBIN A1c (496) 11/07/2024 VITAMIN B12/FOLATE, SERUM PANEL (7065) 0 11/07/2024 CORTISOL, A.M. (4212) 11/07/2024 VITAMIN D,25-OH,TOTAL,IA (69112) 025 Insurance Providers Payer Name Payer Address Payer Phone Subscriber Number Group Number Insured Name Patient Relationship to Insured Coverage Start Date Coverage End Date [facility] [address] [place] [address] [id number] Zaynab Holloway Self - patient is [...] nasal septoplasty 2013 fascial sling for urethra 2017
--- OUTSIDE RECORDS SUMMARY | 2025-01-11 09:32 | XMS_ITS | Clinical Summary ---
Author Organization [facility] Address [address] [place] [address] Care Team Providers Care Roll Tester Name Role Phone Lloyd Hill MD Primary Care Provider + Allergies Active Allergy Reactions Criticality Noted Date Comments Sulfa Antibiotics Hives,Rash Medium 01/01/2007 Other reaction(s): rash Other reaction(s): rash Tetanus Toxoid-Containing Vaccines Rash Low 10/08/2020 Medications glimepiride (AMARYL) 2 [...] ANNUAL PHYSICAL 11/12/2021 HEPATITIS C SCREENING 11/12/2021 INFLUENZA VACCINE 11/18/2024 02/01/2019, , 01/06/2017 Insurance [facility] Member Subscriber Plan / Payer (Ef fective 2018-Present) Name:Zaynab Jaffe Relation to Subscriber:Self Name:Zaynab Jaffe Payer ID:[id number] (NAIC) Type:Not on file Address: [address] PPO Care Teams Roll Tester Relationship Specialty Start Date End Date Lloyd Hill MD [address] [place], [place] [id number] PCP - General Internal Medicine 10/23/21
== END 2025-01-10 23:59 | disposition home or self-care (01) ==
LOC: LAB.DROPOF 01-11 09:23
PROVIDERS: PCP Obstetrics & Gynecology; Visit Provider Obstetrics & Gynecology
DX: R10.2 Pelvic and perineal pain (principal); N89.8 Other specified noninflammatory disorders of vagina
CPT/HCPCS: 87086; 87491; 87529; 87591; 87661; 87798; 87801